=== PATIENT | female | born 1950 ===

== ENCOUNTER 2017-01-09 21:03 | Emergency (ER) | payer MEDICARE, OTHER ==
[2017-01-09 21:11] VITALS: O2SAT 97
--- NOTE | 2017-01-09 21:18 | C.PDOC ---
History Of Present Illness A 66 year old female, whose past medical history includes HTN and Hypercholesterolemia, presents to the emergency department with left sided shoulder and neck pain, which began earlier today. The patient denies any trauma to the area, chest pain, shortness of breath, diaphoresis, or any other complaints at this time. Chief Complaint (Nursing): Chest Pain History Per: Patient Onset/Duration Of Symptoms: Hrs (x earlier today) Current Symptoms Are (Timing): Still Present Past Medical History Vital Signs: Last Vital Signs Temp 98.7 F 01/09/17 21:10 Pulse 93 H 01/09/17 21:15 Resp 20 01/09/17 21:08 BP 170/79 H 01/09/17 21:15 Pulse Ox 97 01/09/17 21:23 - Medical History PMH: HTN, Hypercholesterolemia Family History: States: Unknown Family Hx - Social History Hx Alcohol Use: No Hx Substance Use: No - Immunization History Hx Tetanus Toxoid Vaccination: No Hx Influenza Vaccination: No Hx Pneumococcal Vaccination: No Review Of Systems Except As Marked, All Systems Reviewed And Found Negative. Constitutional: Negative for: Sweats Cardiovascular: Negative for: Chest Pain Respiratory: Negative for: Shortness of Breath Physical Exam - Physical Exam Appears: Well, No Acute Distress Skin: Normal Color, Warm, Dry Eye(s): bilateral: Normal Inspection, PERRL, EOMI Nose: Normal Throat: Normal Neck: Normal ROM, Paracervical Tenderness Cardiovascular: Rhythm Regular Respiratory: Normal Breath Sounds Gastrointestinal/Abdominal: Normal Exam Back: Normal Inspection Extremity: Normal ROM, Other (tenderness to the left shoulder ) ED Course And Treatment O2 Sat by Pulse Oximetry: 97 Medical Decision Making Medical Decision Making: Treatment Plan: -- EKG -- Toradol -- Radiology: Cervical spine, Left shoulder Disposition Counseled Patient/Family Regarding: Diagnosis - Disposition Referrals: [facility] [Outside] Disposition: HOME/ ROUTINE Disposition Time: 23:14 Condition: STABLE Prescriptions: Naproxen [Naprosyn Tab] 375 mg PO TIDPC #20 tab Instructions: Tendinitis (ED) Forms: [facility] (Czech), Gen Discharge Inst Swedish Print Language: YAKUT - POA Present On Arrival: None - Clinical Impression Clinical Impression: Left shoulder pain, Tendinitis - Scribe Statement The provider has reviewed the documentation as recorded by the Scribe Cheri Whittington All medical record entries made by the Scribe were at my direction and personally dictated by me. I have reviewed the chart and agree that the record accurately reflects my personal performance of the history, physical exam, medical decision making, and the department course for this patient. I have also personally directed, reviewed, and agree with the discharge instructions and disposition.
[2017-01-09 23:22] VITALS: BP 149/73; PULSE 84; RESP 18; TEMP 97.4
--- NOTE | 2017-01-10 11:32 | RAD ---
PROCEDURE: Radiographs of the Left Shoulder HISTORY: pain/ tenderness COMPARISON: Chest x-ray performed 12/10/15 FINDINGS: BONES: No acute displaced fracture. The distal clavicle and underlying ribs appear intact. JOINTS: No acute dislocation. SOFT TISSUES: Soft tissues appear unremarkable. No evidence of radiopaque foreign body. Dense atherosclerotic calcification of the aortic knob. IMPRESSION: No acute displaced fracture or dislocation evident. If symptoms persist or if there is continued clinical concern, x-ray follow-up in 7-10 days should be considered.
--- NOTE | 2017-01-10 11:40 | CARD ---
APPROVED REPORT EKG Measurement Heart [id number] <Conclusion> Normal sinus rhythm Cannot rule out Anterior infarct, age undetermined Abnormal ECG
--- NOTE | 2017-01-10 12:01 | RAD ---
PROCEDURE: Cervical Spine Radiographs. HISTORY: Pain. COMPARISON: Cervical spine radiographs 12/10/2015. FINDINGS: BONES: Alignment maintained. No fracture. Dens Intact. DISC SPACES: Multilevel cervical spondylosis again appreciate the mid to inferior cervical spine. No suspicious lytic or blastic bony changes throughout. SOFT TISSUES: Normal. No prevertebral soft tissue swelling. OTHER FINDINGS: None. IMPRESSION: Stable multilevel degenerative disc disease affecting the mid inferior cervical spine. No definite acute fracture or spondylolisthesis. MRI or CT are available follow-up if clinically warranted. S
== END 2017-01-09 23:22 | disposition home or self-care (01) ==
LOC: C.ER 21:03
DX: M75.92 Shoulder lesion, unspecified, left shoulder (principal)
CPT/HCPCS: 72040; 73030; 93005; 96372; 99284; J1885

== ENCOUNTER 2017-05-12 12:42 | Emergency (ER) | payer MEDICARE, OTHER ==
[2017-05-12 13:11] VITALS: O2SAT 98; BMI 31.1
[2017-05-12] MEDS ORDERED: Lactated Ringer's 1,000 ML IV STA (14:00)
[2017-05-12] MEDS ORDERED: Lactated Ringer's 1,000 ML ONE (14:19)
--- NOTE | 2017-05-12 14:40 | C.PDOC ---
History Of Present Illness Patient is a 67 y/o female who presents to the ED with a complaint of epigastric discomfort for the last 2 days. Patient denies pain being related to meals, admitting to eating and drinking well. Patient also notes left trapezius muscle tenderness without pain to the left shoulder. Denies taking any medication at home. Admits good compliance with DM medications, noting good blood sugar at home. No other physical complaints at this time. Time Seen by Provider: 05/12/17 13:19 Chief Complaint (Nursing): Abdominal Pain History Per: Patient History/Exam Limitations: no limitations Onset/Duration Of Symptoms: Days (2 days) Current Symptoms Are (Timing): Still Present Location Of Pain/Discomfort: Epigastric Recent travel outside of the [place]: No Past Medical History Reviewed: Historical Data, Nursing Documentation, Vital Signs Vital Signs: Last Vital Signs Temp 98.2 F 05/12/17 13:07 Pulse 73 05/12/17 13:07 Resp 17 05/12/17 13:07 BP 159/81 H 05/12/17 13:07 Pulse Ox 98 05/12/17 15:49 - Medical History PMH: Diabetes, HTN, Hypercholesterolemia Surgical History: No Surg Hx Family History: States: Unknown Family Hx - Social History Hx Alcohol Use: No Hx Substance Use: No - Immunization History Hx Tetanus Toxoid Vaccination: No Hx Influenza Vaccination: No Hx Pneumococcal Vaccination: No Review Of Systems Gastrointestinal: Positive for: Abdominal Pain (epigastric) Musculoskeletal: Positive for: Arm Pain (left trapezius muscle tenderness). Negative for: Shoulder Pain Physical Exam - Physical Exam Appears: No Acute Distress Skin: Normal Color, Warm, Dry Head: Atraumatic, Normacephalic Oral Mucosa: Moist Neck: Paracervical Tenderness (left trapezius muscle with spasm ) Chest: Symmetrical Cardiovascular: Rhythm Regular, No Murmur Respiratory: Normal Breath Sounds, No Rales, No Rhonchi, No Wheezing Gastrointestinal/Abdominal: Tenderness (mild to epigastric region), Other (obese ) Extremity: Other (normal left shoulder) Neurological/Psych: Oriented x3, Normal Speech, Normal Cognition ED Course And Treatment - Laboratory Results Result Diagrams: 05/12/17 15:19 05/12/17 15:19 Lab Interpretation: Normal (trop neg.) ECG: Interpreted By [place] ECG Rhythm: Sinus Rhythm ECG Interpretation: Normal Rate From EC O2 Sat by Pulse Oximetry: 98 Pulse Ox Interpretation: Normal - Radiology CXR: Interpreted by Me CXR Interpretation: Yes: No Acute Disease - Other Rad Obstructive series X-Ray: Interpreted by Me, Viewed By Me Interpretation: IMPRESSION: Nonobstructive bowel-gas pattern. Clear lungs. Reevaluation Time: 15:55 Reassessment Condition: Improved Medical Decision Making Medical Decision Making: EKG, UA, and blood work ordered. Toradol and IV fluids administered. 1600: normal w/u. normal obstructive series benign belly. L trapezius strain/spasm improved with Toradol- ice and NSAIDS educated. OK for d/c and opt f/u. Disposition Doctor Will See Patient In The: Office Counseled Patient/Family Regarding: Studies Performed, Diagnosis - Disposition Disposition: HOME/ ROUTINE Disposition Time: 15:56 Condition: GOOD Forms: [facility] (Belizean) - Clinical Impression Clinical Impression: Trapezius muscle strain, Abdominal pain - Scribe Statement The provider has reviewed the documentation as recorded by the Scribe Lisa Barnhart All medical record entries made by the Scribe were at my direction and personally dictated by me. I have reviewed the chart and agree that the record accurately reflects my personal performance of the history, physical exam, medical decision making, and the department course for this patient. I have also personally directed, reviewed, and agree with the discharge instructions and disposition.
--- NOTE | 2017-05-12 14:50 | RAD ---
PROCEDURE: Radiographs of the chest and abdomen (obstructive series) HISTORY: Abdominal pain COMPARISON: No prior. TECHNIQUE: AP radiograph of the chest, with upright and supine radiographs of the abdomen. FINDINGS: CHEST: Lungs: The lungs are clear. Cardiovascular: There is mild cardiomegaly. No pulmonary vascular congestion. Pleura: No pleural fluid. No pneumothorax. Other findings: None. ABDOMEN AND PELVIS: Bowel: The bowel gas pattern is nonobstructive. No evidence of mechanical obstruction. Free air: None. Bones: Unremarkable. Other findings: None. IMPRESSION: Nonobstructive bowel-gas pattern. Clear lungs.
[2017-05-12 15:29] LABS: BASO # 0.1 K/uL (0.0-0.2); BASO % 1.2 % (0.0-2.0); EOS # 0.2 K/uL (0.0-0.7); EOS % 2.6 % (0.0-4.0); HEMATOCRIT 30.5 % (34.0-47.0); LYMPH # 1.2 K/uL (1.0-4.3); LYMPH % 13.9 % (20.0-40.0); MEAN CELL VOLUME 78.6 fL (81.0-99.0); MEAN CORPUSCULAR HEMOGLOBIN 27.2 pg (27.0-31.0); MEAN CORPUSCULAR HGB CONC 34.6 g/dL (33.0-37.0); MEAN PLATELET VOLUME 9.4 fL (7.2-11.7); MONO # 0.5 K/uL (0.0-0.8); MONO % 5.4 % (0.0-10.0); RED CELL DISTRIBUTION WIDTH 14.5 % (11.5-14.5); WHITE BLOOD COUNT 8.7 K/uL (4.8-10.8)
[2017-05-12 15:38] LABS: ALB/GLOB RATIO 1.2 (1.0-2.1); ALKALINE PHOSPHATASE 68 U/L (38-126); ALT/SGPT 16 U/L (9-52); AST/SGOT 24 U/L (14-36); BILIRUBIN,TOTAL 0.4 mg/dL (0.2-1.3); BLOOD UREA NITROGEN 19 mg/dL (7-17); CALCIUM 8.8 mg/dl (8.6-10.4); CARBON DIOXIDE 26 mmol/L (22-30); CHLORIDE 98 mmol/L (98-107); GFR AFRICAN-AMERICAN > 60; GLUCOSE,RANDOM 157 mg/dL (65-105); POTASSIUM 3.9 mmol/L (3.6-5.2); SODIUM 134 mmol/L (132-148); TOTAL PROTEIN 7.2 g/dL (6.3-8.3)
[2017-05-12 16:10] VITALS: BP 178/75; PULSE 76; RESP 20; TEMP 98
== END 2017-05-12 16:13 | disposition home or self-care (01) ==
LOC: C.ER 12:42
DX: R10.9 Unspecified abdominal pain (principal); S46.812A Strain of other muscles, fascia and tendons at shoulder and upper arm level, left arm, initial encounter; X58.XXXA Exposure to other specified factors, initial encounter; E11.9 Type 2 diabetes mellitus without complications; E78.00 Pure hypercholesterolemia, unspecified; I10 Essential (primary) hypertension
CPT/HCPCS: 74022; 80053; 82948; 83690; 84484; 85025; 96360; 96361; 96374; 99284; J1885; J7120

== ENCOUNTER 2017-05-21 16:17 | Inpatient (IN) | payer MEDICARE, OTHER ==
[2017-05-21 16:17] VITALS: BMI 31.1
--- NOTE | 2017-05-21 17:05 | C.PDOC ---
History Of Present Illness <Marina Cordao - Last Filed: 05/21/17 18:41> <Edmund Valdez - Last Filed: 05/21/17 22:00> 67-year-old female, PMHx includes Diabetes, presents to the emergency department with complaints of recurring epigastric abdominal pain that started yesterday. Pain is non-radiating, and not associated with eating or any nausea/ vomiting, or diarrhea. States she had similar pain and was seen in ER for it 9 days ago, which resolved, but it has now returned. Patient denies fevers, chills , chest pain, shortness of breath or any other associated symptoms. No other complaints at this time. (Marina Corado) History Per: Patient History/Exam Limitations: no limitations <Marina Coraod - Last Filed: 05/21/17 18:41> <Edmund Valdez - Last Filed: 05/21/17 22:00> Time Seen by Provider: 05/21/17 17:01 Chief Complaint (Nursing): Abdominal Pain Past Medical History Reviewed: Historical Data, Nursing Documentation, Vital Signs - Medical History PMH: Diabetes, HTN, Hypercholesterolemia Family History: States: No Known Family Hx - Social History Hx Alcohol Use: No Hx Substance Use: No - Immunization History Hx Tetanus Toxoid Vaccination: No Hx Influenza Vaccination: No Hx Pneumococcal Vaccination: No <Marina Corado - Last Filed: 05/21/17 18:41> Vital Signs: Last Vital Signs Temp 98.7 F 05/21/17 19:25 Pulse 80 05/21/17 21:25 Resp 20 05/21/17 21:25 BP 165/90 H 05/21/17 21:25 Pulse Ox 100 05/21/17 21:25 Review Of Systems Except As Marked, All Systems Reviewed And Found Negative. Constitutional: Negative for: Fever, Chills Cardiovascular: Negative for: Chest Pain Respiratory: Negative for: Shortness of Breath Gastrointestinal: Positive for: Abdominal Pain. Negative for: Nausea, Vomiting , Diarrhea Musculoskeletal: Negative for: Back Pain Neurological: Negative for: Weakness, Numbness, Headache, Dizziness <Marina Corado - Last Filed: 05/21/17 18:41> Physical Exam - Physical Exam Appears: Non-toxic, No Acute Distress Skin: Warm, Dry, No Rash Head: Atraumatic, Normacephalic Eye(s): bilateral: Normal Inspection, PERRL Nose: Normal Oral Mucosa: Moist Lips: Normal Appearing Neck: Normal ROM Chest: Symmetrical Cardiovascular: Rhythm Regular, No Murmur Respiratory: Normal Breath Sounds, No Accessory Muscle Use Gastrointestinal/Abdominal: Soft, Tenderness (mild, epigastric), No Guarding, No Rebound Extremity: Normal ROM Neurological/Psych: Oriented x3, Normal Speech <Marina Corado - Last Filed: 05/21/17 18:41> ED Course And Treatment - Laboratory Results Result Diagrams: 05/21/17 17:47 05/21/17 17:47 O2 Sat by Pulse Oximetry: 95 (on RA) Pulse Ox Interpretation: Normal <Marina Corado - Last Filed: 05/21/17 18:41> - Laboratory Results Result Diagrams: 05/21/17 17:47 05/21/17 17:47 - CT Scan/US CT abd/pelvis Other Rad Studies (CT/US): Read By Radiologist, Radiology Report Reviewed CT/US Interpretation: FINDINGS: Lower thorax: Enlarged pericardiac lymph nodes noted. Granuloma in the right lower lobe. ABDOMEN: Liver: Undulating contour to the liver. Calcified granulomas. Gallbladder and bile ducts: Dilated gallbladder. No radiopaque gallstones visualized. Ultrasound can. provide more sensitive evaluation of the biliary system as warranted. Pancreas: No acute abnormality as visualized. Spleen: Calcified granulomas. No splenomegaly. Adrenals: No acute abnormality as visualized. Kidneys and ureters: Subcentimeter hypoattenuating lesion in the left kidney too small to. characterize. Symmetric emhancement. No hydronephrosis. Stomach and bowel: Small hiatal hernia. No obstruction. Retained fecal material in the colon. Appendix: What appears to represent fluid-filled appendix is dilated to approximately 14 mm. Surrounding fluid and inflammatory stranding noted. Evidence of connection to cecum with better. visualized on sagittal image. PELVIS: Bladder: Distended. Reproductive: Correlate for hysterectomy. ABDOMEN and PELVIS: Intraperitoneal space: No free air. No significant free fluid. Bones: Degenerative changes, most notable at L5-S1. Vasculature: Atherosclerosis. No abdominal aortic aneurysm. Lymph nodes: Enlarged pericardiac lymph nodes noted. An enlarged para-aortic node visualized. IMPRESSION: Appearance concerning for acute appendicitis. Correlate clinically. Please see details as above. Dilated gallbladder. No radiopaque gallstones visualized. Ultrasound can provide more sensitive. evaluation of the biliary system as warranted. Small hiatal hernia. Retained fecal material in the colon. Enlarged pericardiac lymph nodes noted. An enlarged para-aortic node visualized. Please see additional details/findings as above. Some of the above findings may warrant followup. evaluation <Edmund Valdez - Last Filed: 05/21/17 22:00> Progress - Data Reviewed Data Reviewed: Lab, Diagnostic imaging, EKG, Old records <Marina Corado - Last Filed: 05/21/17 18:41> Medical Decision Making <Marina Corado - Last Filed: 05/21/17 18:41> <Edmund Valdez - Last Filed: 05/21/17 22:00> Medical Decision Making: Impression 67y/o F comes in w/ epigastric abdominal pain x1 day. Prior Visits Notes and records from previous visits were reviewed. Patient evaluated in ER on 05/12 for similar complaint. Patient had normal EKG and urine. She was treated with Toradol and IVFs. Pts XR was benign. (Marina Corado) 21:10 - results from the CT scan via [facility]rad showed positive for appendicitis 21:20 - called the surgical supervisor contour grinder, will come see the patient 21:55 - spoke with surgical supervisor who agrees to admit the patient under Dr. Doyle, reevaluated the patient who denies any abdominal pain at this time and the RLQ is benign. A/P: low grade pancreatisis without findings on CT, lipase [address] but benign RLQ and no leukocytosis admit to Dr. Doyle's service for Obs. (Edmund Valdez) Disposition Counseled Patient/Family Regarding: Diagnosis - Disposition Disposition Time: 19:00 <Marina Corado - Last Filed: 05/21/17 18:41> Doctor Will See Patient In The: Hospital - Disposition Disposition Time: 21:59 <Edmund Valdez - Last Filed: 05/21/17 22:00> - Disposition Condition: GOOD Forms: [facility] (Omani) - Clinical Impression Clinical Impression: UTI (urinary tract infection), Abdominal pain, Elevated lipase, Appendicitis, Pancreatitis - Scribe Statement The provider has reviewed the documentation as recorded by the Scribe (Cecile Morales) <Marina Corado - Last Filed: 05/21/17 18:41> <Edmund Valdez - Last Filed: 05/21/17 22:00> - Scribe Statement All medical record entries made by the Scribe were at my direction and personally dictated by me. I have reviewed the chart and agree that the record accurately reflects my personal performance of the history, physical exam, medical decision making, and the department course for this patient. I have also personally directed, reviewed, and agree with the discharge instructions and disposition. (Marina Corado) Physician Patient Turnover Patient Signed Over To: Edmund Valdez Handoff Comments: DAVID CT, DISPO <Marina Corado - Last Filed: 05/21/17 18:41>
[2017-05-21] MEDS ORDERED: Iohexol 240 (50 ml) PO STA (17:30)
[2017-05-21] MEDS ORDERED: Sodium Chloride 0.9% 1,000 ML IV ONE (17:30)
[2017-05-21] MEDS ORDERED: Sodium Chloride 0.9% 1,000 ML ONE (17:42)
[2017-05-21 17:57] LABS: BASO # 0.1 K/uL (0.0-0.2); BASO % 1.2 % (0.0-2.0); EOS # 0.2 K/uL (0.0-0.7); EOS % 2.5 % (0.0-4.0); HEMOGLOBIN 11.4 g/dL (11.0-16.0); LYMPH # 1.1 K/uL (1.0-4.3); LYMPH % 11.5 % (20.0-40.0); MEAN CELL VOLUME 78.2 fL (81.0-99.0); MEAN CORPUSCULAR HEMOGLOBIN 26.9 pg (27.0-31.0); MEAN CORPUSCULAR HGB CONC 34.5 g/dL (33.0-37.0); MONO # 0.5 K/uL (0.0-0.8); MONO % 5.3 % (0.0-10.0); NEUT # 7.7 K/uL (1.8-7.0); NEUT % 79.5 % (50.0-75.0); RBC 4.24 Mil/uL (3.80-5.20); RED CELL DISTRIBUTION WIDTH 14.3 % (11.5-14.5); WHITE BLOOD COUNT 9.7 K/uL (4.8-10.8)
[2017-05-21] MEDS ORDERED: Iohexol 240 (50 ml) ONE (17:59)
[2017-05-21 18:00] LABS: PROTHROMBIN TIME 10.8 SECONDS (9.7-12.2)
--- NOTE | 2017-05-21 18:09 | RAD ---
PROCEDURE: CHEST RADIOGRAPH, 1 VIEW HISTORY: abd pain COMPARISON: Comparison is made with 12/10/2015 FINDINGS: LUNGS: No significant interval change in the lungs noted since the previous study. PLEURA: No pneumothorax or pleural fluid seen. CARDIOVASCULAR: Normal. OSSEOUS STRUCTURES: No significant abnormalities. VISUALIZED UPPER ABDOMEN: Normal. OTHER FINDINGS: None. IMPRESSION: No active disease.
[2017-05-21 18:13] LABS: SQUAMOUS EPITHIAL 10 /hpf (0-5); URINE BACTERIA MANY (<OCC); URINE BILIRUBIN NEGATIVE (NEGATIVE); URINE BLOOD NEGATIVE (NEGATIVE); URINE CLARITY Clear (Clear); URINE COLOR Yellow (YELLOW); URINE GLUCOSE (UA) 1+ mg/dL (Normal); URINE LEUKOCYTE ESTERASE 2+ Leu/uL (Negative); URINE NITRATE NEGATIVE (NEGATIVE); URINE PROTEIN 3+ mg/dL (NEGATIVE); URINE UROBILINOGEN NORMAL mg/dL (0.2-1.0)
[2017-05-21 18:15] LABS: ALBUMIN 4.2 g/dL (3.5-5.0); ALT/SGPT 17 U/L (9-52); AST/SGOT 23 U/L (14-36); BLOOD UREA NITROGEN 18 mg/dL (7-17); CALCIUM 9.4 mg/dl (8.6-10.4); GFR AFRICAN-AMERICAN > 60; GFR NON-AFRICAN AMERICAN 55; LIPASE 370 U/L (23-300)
[2017-05-21] MEDS ORDERED: Ciprofloxacin 400mg/200ml D5W 400 MG/200 ML BAG IV ONE (18:30)
[2017-05-21] MEDS ORDERED: Ciprofloxacin 400mg/200ml D5W 400 MG/200 ML BAG IVPB ONE (19:13)
[2017-05-21] MEDS ORDERED: Iodixanol 320 MG/ML 100 ML BOTTLE IV ONE (19:31)
[2017-05-21 19:41] VITALS: RESP 20
--- NOTE | 2017-05-21 21:29 | CT ---
EXAM: CT Abdomen and Pelvis With Intravenous Contrast CLINICAL HISTORY: 67 years old, female; Pain; Abdominal pain; Generalized; Additional info: Abd pain TECHNIQUE: Axial computed tomography images of the abdomen and pelvis with intravenous contrast. All CT scans at this facility use one or more dose reduction techniques, viz.: automated exposure control; ma/kV adjustment per patient size (including targeted exams where dose is matched to indication; i.e. head); or iterative reconstruction technique. Coronal and sagittal reformatted images were created and reviewed. CONTRAST: 10 mL of [id number] administered intravenously. COMPARISON: No relevant prior studies available. FINDINGS: Lower thorax: Enlarged pericardiac lymph nodes noted. Granuloma in the right lower lobe. ABDOMEN: Liver: Undulating contour to the liver. Calcified granulomas. Gallbladder and bile ducts: Dilated gallbladder. No radiopaque gallstones visualized. Ultrasound can provide more sensitive evaluation of the biliary system as warranted. Pancreas: No acute abnormality as visualized. Spleen: Calcified granulomas. No splenomegaly. Adrenals: No acute abnormality as visualized. Kidneys and ureters: Subcentimeter hypoattenuating lesion in the left kidney too small to characterize. Symmetric emhancement. No hydronephrosis. Stomach and bowel: Small hiatal hernia. No obstruction. Retained fecal material in the colon. Appendix: What appears to represent fluid-filled appendix is dilated to approximately 14 mm. Surrounding fluid and inflammatory stranding noted. Evidence of connection to cecum with better visualized on sagittal image. PELVIS: Bladder: Distended. Reproductive: Correlate for hysterectomy. ABDOMEN and PELVIS: Intraperitoneal space: No free air. No significant free fluid. Bones: Degenerative changes, most notable at L5-S1. Vasculature: Atherosclerosis. No abdominal aortic aneurysm. Lymph nodes: Enlarged pericardiac lymph nodes noted. An enlarged para-aortic node visualized. IMPRESSION: Appearance concerning for acute appendicitis. Correlate clinically. Please see details as above. Dilated gallbladder. No radiopaque gallstones visualized. Ultrasound can provide more sensitive evaluation of the biliary system as warranted. Small hiatal hernia. Retained fecal material in the colon. Enlarged pericardiac lymph nodes noted. An enlarged para-aortic node visualized. Please see additional details/findings as above. Some of the above findings may warrant followup evaluation.
--- NOTE | 2017-05-21 22:10 | CP.PCM.HP ---
History of Present Illness - History of Present Illness History of Present Illness: This is a 67F with a PMH of HTN and DM who presents with a 2 day history of epigastric pain. She reports that the pain is not associated with meals. At the time of my examination she reports that her pain has resolved. She presented 9 days prior to the ed for similar symptoms that had resolved. She denies any fevers, or chills at home. She denies any nausea vomiting or diarrhea. PMH: HTN, DM PSH: , Hysterectomy ALL: Penicillin (Rash) Social: Denies Tobacco, Ethanol, Drugs Present on Admission - Present on Admission Any Indicators Present on Admission: No History of DVT/PE: No History of Uncontrolled Diabetes: Yes Urinary Catheter: No Review of Systems - Constitutional Constitutional: absent: Anorexia, Chills, Fever - EENT Eyes: absent: Blind Spots, Blurred Vision Ears: absent: Ear Pain, Tinnitus Nose/Mouth/Throat: absent: Epistaxis - Cardiovascular Cardiovascular: absent: Chest Pain, Dyspnea - Respiratory Respiratory: absent: Cough, Dyspnea on Exertion - Gastrointestinal Gastrointestinal: Abdominal Pain. absent: Cramping, Diarrhea, Nausea, Vomiting - Genitourinary Genitourinary: absent: Difficulty Urinating, Dysuria - Musculoskeletal Musculoskeletal: absent: Arthralgias - Integumentary Integumentary: absent: Lesions Past Patient History - Infectious Disease Hx of Infectious Diseases: None - Past Social History Smoking Status: Never Smoked - CARDIAC Hx Hypercholesterolemia: Yes Hx Hypertension: Yes - ENDOCRINE/METABOLIC Hx Diabetes Mellitus Type 2: Yes - PSYCHIATRIC Hx Substance Use: No - SURGICAL HISTORY Hx Hysterectomy: Yes - ANESTHESIA Hx Anesthesia: Yes Hx Anesthesia Reactions: No Hx Malignant Hyperthermia: No Meds Allergies/Adverse Reactions: Allergies Allergy/AdvReac Type Severity Reaction Status Date / Time Penicillins Allergy RASH Verified 05/21/17 16:24 Physical Exam - Constitutional Appears: Non-toxic, No Acute Distress - Head Exam Head Exam: ATRAUMATIC, NORMOCEPHALIC - Eye Exam Eye Exam: EOMI, Normal appearance - ENT Exam ENT Exam: Mucous Membranes Moist - Respiratory Exam Respiratory Exam: NORMAL BREATHING PATTERN - Cardiovascular Exam Cardiovascular Exam: REGULAR RHYTHM, +S1, +S2 - GI/Abdominal Exam GI & Abdominal Exam: Soft. absent: Distended, Firm, Guarding, Hernia, Rebound, Rigid - Extremities Exam Extremities exam: Positive for: normal capillary refill - Neurological Exam Neurological exam: Alert, Oriented x3 - Psychiatric Exam Psychiatric exam: Normal Affect, Normal Mood - Skin Skin Exam: Dry, Intact Results - Vital Signs Recent Vital Signs: Last Vital Signs Temp 98.7 F 05/21/17 19:25 Pulse 80 05/21/17 21:25 Resp 20 05/21/17 21:25 BP 165/90 H 05/21/17 21:25 Pulse Ox 100 05/21/17 21:25 - Labs Result Diagrams: 05/21/17 17:47 05/21/17 17:47 Labs: Laboratory Results - last 24 hr 05/21/17 05/21/17 05/21/17 17:47 17:47 17:47 WBC 9.7 RBC 4.24 Hgb 11.4 Hct 33.2 L MCV 78.2 L MCH 26.9 L MCHC 34.5 RDW 14.3 Plt Count 288 MPV 9.0 Neut % (Auto) 79.5 H Lymph % (Auto) 11.5 L [place] % (Auto) 5.3 Eos % (Auto) 2.5 Baso % (Auto) 1.2 Neut # 7.7 H Lymph # 1.1 [place] # 0.5 Eos # 0.2 Baso # 0.1 PT 10.8 INR 1.0 APTT 32 Sodium 133 Potassium 3.7 Chloride 96 L Carbon Dioxide 25 Anion Gap 16 BUN 18 H Creatinine 1.0 Est GFR ( Amer) > 60 Est GFR (Non-Af Amer) 55 Random Glucose 264 H Calcium 9.4 Total Bilirubin 0.4 AST 23 ALT 17 Alkaline Phosphatase 76 Troponin I < 0.0120 Total Protein 8.2 Albumin 4.2 Globulin 4.0 H Albumin/Globulin Ratio 1.0 Lipase 370 H Urine Color Urine Clarity Urine pH Ur Specific [place] Urine Protein Urine Glucose (UA) Urine Ketones Urine Blood Urine Nitrate Urine Bilirubin Urine Urobilinogen Ur Leukocyte Esterase Urine WBC (Auto) Urine RBC (Auto) Ur Squamous Epith Cells Urine Bacteria 05/21/17 17:47 WBC RBC Hgb Hct MCV MCH MCHC RDW Plt Count MPV Neut % (Auto) Lymph % (Auto) [place] % (Auto) Eos % (Auto) Baso % (Auto) Neut # Lymph # [place] # Eos # Baso # PT INR APTT Sodium Potassium Chloride Carbon Dioxide Anion Gap BUN Creatinine Est GFR ( Amer) Est GFR (Non-Af Amer) Random Glucose Calcium Total Bilirubin AST ALT Alkaline Phosphatase Troponin I Total Protein Albumin Globulin Albumin/Globulin Ratio Lipase Urine Color Yellow Urine Clarity Clear Urine pH 7.0 Ur Specific [place] 1.009 Urine Protein 3+ H Urine Glucose (UA) 1+ Urine Ketones Negative Urine Blood Negative Urine Nitrate Negative Urine Bilirubin Negative Urine Urobilinogen Normal Ur Leukocyte Esterase 2+ H Urine WBC (Auto) 32 H Urine RBC (Auto) 26 H Ur Squamous Epith Cells 10 H Urine Bacteria Many H Assessment & Plan - Assessment and Plan (Free Text) Assessment: This is a 67F with Abdominal Pain NPO IVF Cipro/Flagyl Toradol AM Labs SCDs Re-evaluate in AM D/W Dr. Vivek Garcia PGY2
[2017-05-21] MEDS ORDERED: Sodium Chloride 0.9% 1,000 ML IV SCH (22:30)
[2017-05-22] MEDS: metroNIDAZOLE IV 500 mg/100 ml 500 MG/100 ML BAG IVPB SCH ×2 (05:00→13:48)
[2017-05-22] MEDS ORDERED: Influenza Vaccine 60 mcg/0.5 mL SYR (4YR UP) IM ONE ×2 (06:33→14:45)
--- NOTE | 2017-05-22 06:33 | CP.PCM.PN ---
Subjective - Date & Time of Evaluation Date of Evaluation: 05/22/17 Time of Evaluation: 06:30 - Subjective Subjective: General Surgery Progress Note for Dr. Doyle This Patient was seen and examined this AM at bedside no acute events overnight. The patient complains of mild epigastric pain and a headache. Denies fevers chills chest pain nausea vomiting and diarrhea. Objective - Vital Signs/Intake and Output Vital Signs (last 24 hours): Temp Pulse Resp BP Pulse Ox 98.7 F 85 20 142/89 100 05/21/17 19:25 05/21/17 22:20 05/21/17 22:20 05/21/17 22:20 05/21/17 22:20 - Medications Medications: Current Medications Acetaminophen (Tylenol 325mg Tab) 650 mg PO STAT [facility] Stop: 05/22/17 06:27 Acetaminophen (Tylenol 325mg Tab) 650 mg PO Q6 PRN PRN Reason: Headache Amlodipine Besylate (Norvasc) 10 mg PO DAILY [facility] Glipizide (Glucotrol) 10 mg PO DAILY [facility] Hydrochlorothiazide (Hydrodiuril) 25 mg PO DAILY [facility] Ciprofloxacin (Cipro 400mg/200ml Dsw) 400 mg in 200 mls @ 133 mls/hr IVPB Q12H [facility] Last Admin: 05/22/17 06:15 Dose: 133 mls/hr Metronidazole (Flagyl) 500 mg in 100 mls @ 100 mls/hr IVPB Q8H [facility] Last Admin: 05/22/17 05:00 Dose: 100 mls/hr Sodium Chloride (Sodium Chloride 0.9%) 1,000 mls @ 100 mls/hr IV .Q10H [facility] Last Admin: 05/21/17 23:00 Dose: 100 mls/hr Ketorolac Tromethamine (Toradol) 30 mg IM Q6 [facility] Stop: 05/23/17 06:01 Last Admin: 05/22/17 06:20 Dose: Not Given Losartan Potassium (Cozaar) 100 mg PO DAILY [facility] Metformin HCl (Glucophage) 500 mg PO DAILY [facility] Metoprolol Succinate (Toprol Xl) 100 mg PO DAILY [facility] Pantoprazole Sodium (Protonix Ec Tab) 20 mg PO DAILY [facility] Rosuvastatin Calcium (Crestor) 20 mg PO HS [facility] Sitagliptin Phosphate (Januvia) 25 mg PO DAILY [facility] - Labs Labs: 05/21/17 17:47 05/21/17 17:47 PT 10.8 SECONDS (9.7-12.2) 05/21/17 17:47 INR 1.0 05/21/17 17:47 APTT 32 SECONDS (21-34) 05/21/17 17:47 - Constitutional Appears: Non-toxic, No Acute Distress - Head Exam Head Exam: ATRAUMATIC, NORMOCEPHALIC - Eye Exam Eye Exam: EOMI, Normal appearance - ENT Exam ENT Exam: Mucous Membranes Moist - Respiratory Exam Respiratory Exam: NORMAL BREATHING PATTERN - Cardiovascular Exam Cardiovascular Exam: REGULAR RHYTHM, +S1, +S2 - GI/Abdominal Exam GI & Abdominal Exam: Soft. absent: Firm, Guarding, Rigid, Tenderness - Neurological Exam Neurological Exam: Alert, Normal Gait - Psychiatric Exam Psychiatric exam: Normal Affect, Normal Mood - Skin Skin Exam: Dry, Intact, Normal Color Assessment and Plan - Assessment and Plan (Free Text) Assessment: 67F with abdominal pain and lipase of 370 Regular Diet Abx Consult GI for pancreatitis No surgical intervention at this time D/W Dr. Vivek Garcia PGY2
[2017-05-22] MEDS ORDERED: Ciprofloxacin 400mg/200ml D5W 400 MG/200 ML BAG IVPB SCH (07:15)
[2017-05-22 08:06] VITALS: BP 156/72; PULSE 75; TEMP 98.4; O2SAT 97
[2017-05-22 08:29] LABS: BASO # 0.1 K/uL (0.0-0.2); BASO % 1.4 % (0.0-2.0); EOS # 0.3 K/uL (0.0-0.7); HEMOGLOBIN 10.3 g/dL (11.0-16.0); LYMPH # 1.2 K/uL (1.0-4.3); LYMPH % 17.4 % (20.0-40.0); MEAN CELL VOLUME 78.3 fL (81.0-99.0); MEAN CORPUSCULAR HGB CONC 34.5 g/dL (33.0-37.0); MONO # 0.4 K/uL (0.0-0.8); MONO % 6.3 % (0.0-10.0); NEUT % 70.9 % (50.0-75.0); RBC 3.8 Mil/uL (3.80-5.20); RED CELL DISTRIBUTION WIDTH 14.6 % (11.5-14.5)
[2017-05-22 08:50] LABS: ALB/GLOB RATIO 1.1 (1.0-2.1); ALBUMIN 3.7 g/dL (3.5-5.0); ALT/SGPT 22 U/L (9-52); AST/SGOT 21 U/L (14-36); BLOOD UREA NITROGEN 13 mg/dL (7-17); CALCIUM 8.9 mg/dl (8.6-10.4); GFR AFRICAN-AMERICAN > 60; GFR NON-AFRICAN AMERICAN > 60
[2017-05-22] MEDS ORDERED: Metoprolol Succinate 100 mg XL Tab PO SCH (10:00)
[2017-05-22] MEDS ORDERED: Pantoprazole 20 mg EC Tab PO SCH (10:00)
[2017-05-22] MEDS ORDERED: Potassium Chloride 20 mEq ER Tab PO ONE (10:00)
--- NOTE | 2017-05-22 12:05 | CP.PCM.CON ---
History of Present Illness - History of Present Illness History of Present Illness: This is a 67 year old woman with abdominal pain. Patient was seen in the ER for epigastric pain on 05/12/2017 and was treated and released. Patient was readmitted 05/21/2017 for recurrent pain in th [place] location, unrelated to meals. She denies having nausea, vomiting, diarrhea. CT scan showed a dilated, fluid-filled appendix measureing 14 mm with surrounding fluid and inflammatory stranding. In addition, an elevated lipase level of 370 (normal up to 300) was noted. Review of Systems - Constitutional Constitutional: absent: Anorexia, Chills, Fever - Cardiovascular Cardiovascular: absent: Chest Pain, Dyspnea - Respiratory Respiratory: absent: Cough - Gastrointestinal Gastrointestinal: Abdominal Pain. absent: Diarrhea, Nausea, Vomiting - Genitourinary Genitourinary: absent: Dysuria Past Patient History - Infectious Disease Hx of Infectious Diseases: None - Past Medical History & Family History Past Medical History?: Yes - Past Social History Smoking Status: Never Smoked - CARDIAC Hx Cardiac Disorders: Yes Hx Hypercholesterolemia: Yes Hx Hypertension: Yes - PULMONARY Hx Respiratory Disorders: No - NEUROLOGICAL Hx Neurological Disorder: No - HEENT Hx HEENT Problems: No - RENAL Hx Chronic Kidney Disease: No - ENDOCRINE/METABOLIC Hx Endocrine Disorders: Yes Hx Diabetes Mellitus Type 2: Yes - HEMATOLOGICAL/ONCOLOGICAL Hx Blood Disorders: No - INTEGUMENTARY Hx Dermatological Problems: No - MUSCULOSKELETAL/RHEUMATOLOGICAL Hx Musculoskeletal Disorders: No - GASTROINTESTINAL Hx Gastrointestinal Disorders: No - GENITOURINARY/GYNECOLOGICAL Hx Genitourinary Disorders: No - PSYCHIATRIC Hx Psychophysiologic Disorder: No Hx Substance Use: No - SURGICAL HISTORY Hx Hysterectomy: Yes - ANESTHESIA Hx Anesthesia: Yes Hx Anesthesia Reactions: No Hx Malignant Hyperthermia: No Meds Allergies/Adverse Reactions: Allergies Allergy/AdvReac Type Severity Reaction Status Date / Time Penicillins Allergy RASH Verified 05/21/17 16:24 - Medications Medications: Current Medications Acetaminophen (Tylenol 325mg Tab) 650 mg PO Q6 PRN PRN Reason: Headache Amlodipine Besylate (Norvasc) 10 mg PO DAILY [facility] Last Admin: 05/22/17 09:53 Dose: 10 mg Glipizide (Glucotrol) 10 mg PO DAILY [facility] Last Admin: 05/22/17 09:44 Dose: 10 mg Hydrochlorothiazide (Hydrodiuril) 25 mg PO DAILY [facility] Last Admin: 05/22/17 09:44 Dose: 25 mg Ciprofloxacin (Cipro 400mg/200ml Dsw) 400 mg in 200 mls @ 133 mls/hr IVPB Q12H [facility] Last Admin: 05/22/17 06:15 Dose: 133 mls/hr Metronidazole (Flagyl) 500 mg in 100 mls @ 100 mls/hr IVPB Q8H [facility] Last Admin: 05/22/17 05:00 Dose: 100 mls/hr Ketorolac Tromethamine (Toradol) 30 mg IM Q6 [facility] Stop: 05/23/17 06:01 Last Admin: 05/22/17 11:32 Dose: Not Given Losartan Potassium (Cozaar) 100 mg PO DAILY [facility] Last Admin: 05/22/17 09:44 Dose: 100 mg Metformin HCl (Glucophage) 500 mg PO DAILY [facility] Last Admin: 05/22/17 09:45 Dose: 500 mg Metoprolol Succinate (Toprol Xl) 100 mg PO DAILY [facility] Last Admin: 05/22/17 09:45 Dose: 100 mg Pantoprazole Sodium (Protonix Ec Tab) 20 mg PO DAILY [facility] Last Admin: 05/22/17 11:03 Dose: 20 mg Pneumococcal Polyvalent Vaccine (Pneumovax 23 Vaccine) 0.5 ml IM .ONCE ONE Stop: 05/23/17 10:01 Rosuvastatin Calcium (Crestor) 20 mg PO [facility] Sitagliptin Phosphate (Januvia) 25 mg PO DAILY [facility] Last Admin: 05/22/17 09:44 Dose: 25 mg Physical Exam - Constitutional Appears: No Acute Distress - Head Exam Head Exam: ATRAUMATIC, NORMOCEPHALIC - Eye Exam Eye Exam: EOMI, PERRL - Neck Exam Neck exam: Negative for: Lymphadenopathy, Thyromegaly - Respiratory Exam Respiratory Exam: NORMAL BREATHING PATTERN. absent: Rales, Rhonchi, Wheezes - Cardiovascular Exam Cardiovascular Exam: REGULAR RHYTHM, +S1, +S2. absent: Gallop, Rubs, Systolic Murmur - GI/Abdominal Exam GI & Abdominal Exam: Normal Bowel Sounds, Soft. absent: Mass, Organomegaly, Tenderness - Rectal Exam Rectal Exam: Deferred - Extremities Exam Extremities exam: Negative for: calf tenderness, pedal edema Results - Vital Signs Recent Vital Signs: Last Vital Signs Temp 98.4 F 05/22/17 08:05 Pulse 75 05/22/17 08:05 Resp 20 01/01/18 08:05 BP 156/72 H 05/22/17 08:05 Pulse Ox 97 05/22/17 08:05 - Labs Result Diagrams: 05/22/17 08:20 05/22/17 08:20 Labs: Laboratory Results - last 24 hr 05/21/17 05/21/17 05/21/17 17:47 17:47 17:47 WBC 9.7 RBC 4.24 Hgb 11.4 Hct 33.2 L MCV 78.2 L MCH 26.9 L MCHC 34.5 RDW 14.3 Plt Count 288 MPV 9.0 Neut % (Auto) 79.5 H Lymph % (Auto) 11.5 L [place] % (Auto) 5.3 Eos % (Auto) 2.5 Baso % (Auto) 1.2 Neut # 7.7 H Lymph # 1.1 [place] # 0.5 Eos # 0.2 Baso # 0.1 PT 10.8 INR 1.0 APTT 32 Sodium 133 Potassium 3.7 Chloride 96 L Carbon Dioxide 25 Anion Gap 16 BUN 18 H Creatinine 1.0 Est GFR ( Amer) > 60 Est GFR (Non-Af Amer) 55 POC Glucose (mg/dL) Random Glucose 264 H Calcium 9.4 Total Bilirubin 0.4 AST 23 ALT 17 Alkaline Phosphatase 76 Troponin I < 0.0120 Total Protein 8.2 Albumin 4.2 Globulin 4.0 H Albumin/Globulin Ratio 1.0 Lipase 370 H Urine Color Urine Clarity Urine pH Ur Specific [place] Urine Protein Urine Glucose (UA) Urine Ketones Urine Blood Urine Nitrate Urine Bilirubin Urine Urobilinogen Ur Leukocyte Esterase Urine WBC (Auto) Urine RBC (Auto) Ur Squamous Epith Cells Urine Bacteria 05/21/17 05/22/17 05/22/17 17:47 07:09 08:20 WBC 7.0 RBC 3.80 Hgb 10.3 L Hct 29.7 L MCV 78.3 L MCH 27.0 MCHC 34.5 RDW 14.6 H Plt Count 261 MPV 9.0 Neut % (Auto) 70.9 Lymph % (Auto) 17.4 L [place] % (Auto) 6.3 Eos % (Auto) 4.0 Baso % (Auto) 1.4 Neut # 5.0 Lymph # 1.2 [place] # 0.4 Eos # 0.3 Baso # 0.1 PT INR APTT Sodium Potassium Chloride Carbon Dioxide Anion Gap BUN Creatinine Est GFR ( Amer) Est GFR (Non-Af Amer) POC Glucose (mg/dL) 154 H Random Glucose Calcium Total Bilirubin AST ALT Alkaline Phosphatase Troponin I Total Protein Albumin Globulin Albumin/Globulin Ratio Lipase Urine Color Yellow Urine Clarity Clear Urine pH 7.0 Ur Specific [place] 1.009 Urine Protein 3+ H Urine Glucose (UA) 1+ Urine Ketones Negative Urine Blood Negative Urine Nitrate Negative Urine Bilirubin Negative Urine Urobilinogen Normal Ur Leukocyte Esterase 2+ H Urine WBC (Auto) 32 H Urine RBC (Auto) 26 H Ur Squamous Epith Cells 10 H Urine Bacteria Many H 05/22/17 05/22/17 08:20 11:20 WBC RBC Hgb Hct MCV MCH MCHC RDW Plt Count MPV Neut % (Auto) Lymph % (Auto) [place] % (Auto) Eos % (Auto) Baso % (Auto) Neut # Lymph # [place] # Eos # Baso # PT INR APTT Sodium 134 Potassium 3.4 L Chloride 100 Carbon Dioxide 27 Anion Gap 11 BUN 13 Creatinine 0.9 Est GFR ( Amer) > 60 Est GFR (Non-Af Amer) > 60 POC Glucose (mg/dL) 216 H Random Glucose 182 H Calcium 8.9 Total Bilirubin 0.3 AST 21 ALT 22 Alkaline Phosphatase 61 Troponin I Total Protein 7.2 Albumin 3.7 Globulin 3.5 Albumin/Globulin Ratio 1.1 Lipase Urine Color Urine Clarity Urine pH Ur Specific [place] Urine Protein Urine Glucose (UA) Urine Ketones Urine Blood Urine Nitrate Urine Bilirubin Urine Urobilinogen Ur Leukocyte Esterase Urine WBC (Auto) Urine RBC (Auto) Ur Squamous Epith Cells Urine Bacteria Assessment & Plan (1) Appendicitis Assessment and Plan: Patient had CT showing an abnormal appendix, dilated, surrounded by inflammatory changes. These findings were not reported on a previous scan 2015. This is consistent with appendicitis or an appendiceal neoplasm. Consider repeat CT scan, surgery follow up. Status: Acute (2) Elevated lipase Assessment and Plan: Elevation of the lipase to three times the upper limit of normal (900 in this lab) is consistent with pancreatitis. Elevation of the lipase to 370 is non- specific. The CT scan showed no pancreatic abnormality, so it is unlikely that the patient has pancreatitis. Lipase should be repeated. Consdier MRI. Status: Acute
[2017-05-22] MEDS ORDERED: Enoxaparin 40 mg Syringe SC SCH (14:00)
[2017-05-22 14:29] LABS: AMYLASE 94 U/L (30-110); LIPASE 265 U/L (23-300)
[2017-05-22] MEDS ORDERED: Pneumococcal 23-Valent Vaccine IM ONE (14:45)
--- NOTE | 2017-05-23 13:17 | CARD ---
APPROVED REPORT EKG Measurement Heart [id number] <Conclusion> Normal sinus rhythm Normal ECG
== END 2017-05-22 17:45 | disposition home or self-care (01) | DRG 394 ==
LOC: C.ER 16:17 → C.9E 21:54 → C.3T 22:13
PROVIDERS: ADMIT Specialist; ATTEND Specialist
DX: K35.80 Unspecified acute appendicitis (principal); N39.0 Urinary tract infection, site not specified; E11.9 Type 2 diabetes mellitus without complications; R74.8 Abnormal levels of other serum enzymes; E78.00 Pure hypercholesterolemia, unspecified; I10 Essential (primary) hypertension

== ENCOUNTER 2017-05-26 15:52 | Emergency (ER) | payer MEDICARE, OTHER ==
[2017-05-26 15:52] VITALS: BMI 31.1
[2017-05-26 17:25] LABS: SQUAMOUS EPITHIAL 3 /hpf (0-5); URINE BACTERIA RARE (<OCC); URINE BILIRUBIN NEGATIVE (NEGATIVE); URINE BLOOD NEGATIVE (NEGATIVE); URINE CLARITY Clear (Clear); URINE COLOR Yellow (YELLOW); URINE GLUCOSE (UA) 1+ mg/dL (Normal); URINE LEUKOCYTE ESTERASE NEG Leu/uL (Negative); URINE NITRATE NEGATIVE (NEGATIVE); URINE PROTEIN 3+ mg/dL (NEGATIVE); URINE UROBILINOGEN NORMAL mg/dL (0.2-1.0)
[2017-05-26] MEDS ORDERED: Iohexol 240 (50 ml) PO STA (17:40)
--- NOTE | 2017-05-26 17:55 | C.PDOC ---
History Of Present Illness 67 yr old female presents to the ER with complaints of abdominal pain. Patient was seen on 05/21, had a equivocal CT for appendicitis and was admitted for 24hrs, discharged home with antibiotics and no surgery. Patient was seen by Dr. Doyle. Patient returns today states the pain has progressed since morning and is associated with loose stool. Patient reports she has been compliant with the antibiotics. Denies fever, chills, chest pain, SOB, nausea, vomiting, dysuria, weakness or numbness. Time Seen by Provider: 05/26/17 17:25 Chief Complaint (Nursing): Abdominal Pain History Per: Patient History/Exam Limitations: no limitations Onset/Duration Of Symptoms: Days Past Medical History Reviewed: Historical Data, Nursing Documentation, Vital Signs Vital Signs: Last Vital Signs Temp 97.9 F 05/26/17 15:54 Pulse 80 05/26/17 15:54 Resp 20 05/26/17 15:54 BP 185/93 H 05/26/17 15:54 Pulse Ox 98 05/26/17 18:52 - Medical History PMH: Diabetes, HTN, Hypercholesterolemia Family History: States: No Known Family Hx - Social History Hx Alcohol Use: No Hx Substance Use: No - Immunization History Hx Tetanus Toxoid Vaccination: No Hx Influenza Vaccination: No Hx Pneumococcal Vaccination: No Review Of Systems Except As Marked, All Systems Reviewed And Found Negative. Constitutional: Negative for: Fever, Chills Cardiovascular: Negative for: Chest Pain Respiratory: Negative for: Shortness of Breath Gastrointestinal: Positive for: Abdominal Pain. Negative for: Nausea, Vomiting Genitourinary: Negative for: Dysuria Neurological: Negative for: Weakness, Numbness Physical Exam - Physical Exam Appears: Non-toxic, No Acute Distress Skin: Warm, Dry, No Rash Head: Atraumatic, Normacephalic Oral Mucosa: Moist Chest: Symmetrical, No Tenderness Cardiovascular: Rhythm Regular, No Murmur Respiratory: Normal Breath Sounds, No Rales, No Rhonchi, No Stridor, No Wheezing Gastrointestinal/Abdominal: Soft, Tenderness (epigastric and hypogastrium), No Guarding, No Rebound Extremity: Normal ROM, No Swelling Neurological/Psych: Oriented x3, Normal Speech, Normal Motor, Normal Sensation ED Course And Treatment - Laboratory Results Result Diagrams: 05/26/17 18:04 05/26/17 18:04 O2 Sat by Pulse Oximetry: 98 (RA) Pulse Ox Interpretation: Normal - CT Scan/US CT - Abd & Pelvis w/ PO & IV Contrast Other Rad Studies (CT/US): Read By Radiologist, Radiology Report Reviewed Medical Decision Making Medical Decision Making: IMPRESSION: Abdominal pain PLAN: * CT - Abd & Pelvis w/ PO & IV Contrast * EKG * CBC * CMP * Urinalysis * Morphine IVP * Protonix IVP * Zofran IVP Disposition - Disposition Disposition Time: 19:00 (Transfered to Dr. Brush from al.) Condition: STABLE Forms: [employer] (Thai) - Clinical Impression Clinical Impression: Abdominal pain - Scribe Statement The provider has reviewed the documentation as recorded by the Scribe Tiffanie Espana Provider Attestation: All medical record entries made by the Scribe were at my direction and personally dictated by me. I have reviewed the chart and agree that the record accurately reflects my personal performance of the history, physical exam, medical decision making, and the department course for this patient. I have also personally directed, reviewed, and agree with the discharge instructions and disposition. Physician Patient Turnover - . Patient Signed Over To: Larissa Brush Handoff Comments: pending ct scan of abd. and pelvis, reevaluation and disposition.
[2017-05-26] MEDS ORDERED: Morphine 4 MG/ML VIAL ONE (18:05)
[2017-05-26] MEDS ORDERED: Iohexol 240 (50 ml) ONE (18:06)
[2017-05-26 18:10] LABS: BASO # 0.1 K/uL (0.0-0.2); BASO % 1.2 % (0.0-2.0); EOS # 0.3 K/uL (0.0-0.7); EOS % 3.4 % (0.0-4.0); LYMPH % 11.3 % (20.0-40.0); MEAN CORPUSCULAR HEMOGLOBIN 26.7 pg (27.0-31.0); MEAN CORPUSCULAR HGB CONC 34.3 g/dL (33.0-37.0); MEAN PLATELET VOLUME 9.4 fL (7.2-11.7); MONO # 0.5 K/uL (0.0-0.8); MONO % 6.3 % (0.0-10.0); NEUT # 6.8 K/uL (1.8-7.0); NEUT % 77.8 % (50.0-75.0); RBC 4.1 Mil/uL (3.80-5.20); RED CELL DISTRIBUTION WIDTH 14.9 % (11.5-14.5); WHITE BLOOD COUNT 8.7 K/uL (4.8-10.8)
[2017-05-26 18:31] LABS: ALB/GLOB RATIO 1.1 (1.0-2.1); ALBUMIN 4.1 g/dL (3.5-5.0)
[2017-05-26] MEDS ORDERED: Iodixanol 320 MG/ML 100 ML BOTTLE IV ONE (19:17)
--- NOTE | 2017-05-26 21:36 | CT ---
EXAM: CT Abdomen and Pelvis With Intravenous Contrast EXAM DATE/TIME: 05/26/2017 5:40 PM CLINICAL HISTORY: 67 years old, female; Pain; Abdominal pain; Generalized; Additional info: Abd pain TECHNIQUE: Axial computed tomography images of the abdomen and pelvis with intravenous contrast. All CT scans at this facility use one or more dose reduction techniques, viz.: automated exposure control; ma/kV adjustment per patient size (including targeted exams where dose is matched to indication; i.e. head); or iterative reconstruction technique. Coronal and sagittal reformatted images were created and reviewed. CONTRAST: 100 mL of visipaque 320 administered intravenously. COMPARISON: Prior CT abdomen and pelvis of 2017-05-21 20:51 FINDINGS: LOWER THORAX: Gastroesophageal reflux. Stable appearance of a 3 mm noncalcified nodule in the left lung base. Heart appears mildly enlarged. Coronary artery calcification. ABDOMEN: LIVER: Liver again appears cirrhotic. GALLBLADDER AND BILE DUCTS: Mild gallbladder dilatation. Suspect a small amount of pericholecystic fluid versus gallbladder wall thickening, seen as a rim of low density adjacent to the enhancing gallbladder mucosa, image 52/series 601. No radioopaque gallstones are seen. No evidence of significant pericholecystic inflammatory changes. No evidence of significant biliary ductal dilatation. PANCREAS: Pancreatic head appears mildly enlarged relative to the remainder of the pancreas, however, there is no evidence of significant peripancreatic stranding/inflammation. SPLEEN: No acute abnormality of the spleen identified. ADRENALS: No acute abnormality of the adrenal glands identified. KIDNEYS AND URETERS: Incidental fluid density 4 mm left renal lesion, measuring less than 10 mm. Consistent with the [employer]?s Incidental Findings Committee Report (J Am Brianna Radiol 2010): Unless the patient?s specific circumstances suggest otherwise, any cystic kidney lesion less than 1.0 cm not otherwise characterized in this report as possessing suspicious or indeterminate imaging features is/are highly likely to be benign and do not require follow-up imaging or biopsy. No acute abnormality of the kidneys identified. STOMACH AND BOWEL: See below. Otherwise, no significant abnormality of the bowel is identified. No evidence of bowel obstruction. No evidence of diverticulitis. APPENDIX: Normal appendix is not seen, and there are postsurgical changes near the cecum, which may be prior appendectomy. Recommend clinical correlation. PELVIS: BLADDER: Bladder is mildly dilated. REPRODUCTIVE: Uterus is surgically absent. Bilateral ovaries are seen, and are within normal limits in appearance. ABDOMEN and PELVIS: INTRAPERITONEAL SPACE: No evidence of free intraperitoneal air or fluid. RETROPERITONEAL SPACE: Again seen is fluid in the right retroperitoneal space, in the abdomen and pelvis, small in amount, not significantly changed since the prior study. This abuts the second duodenal segment, which appears thick walled. Best seen on image 104, there is a small 1.3 cm round, hyperdense, well-defined mass in the right retroperitoneum, which has fluid adjacent to it. This is of uncertain etiology. It does not connect to any definite solid or hollow organ. It could represent a small calcified lymph node. BONES/JOINTS: Bony structures appear demineralized. SOFT TISSUES: No acute abnormality of the visualized soft tissues is seen. VASCULATURE: Atherosclerotic calcification. No evidence of abdominal aortic aneurysm. LYMPH NODES: See above. Multiple small lymph nodes seen in the retroperitoneum, none appearing pathologically enlarged. This is a nonspecific finding. No evidence of diffuse pathologic lymphadenopathy. IMPRESSION: - No significant change compared to a 05/21/2017 CT. - Small amount of fluid in the right retroperitoneum. This is of uncertain etiology, but could potentially be due to duodenitis or mild acute pancreatitis, involving the pancreatic head. Recommend clinical correlation. - Small amount of pericholecystic fluid versus gallbladder wall thickening. This could be secondary to underlying chronic liver disease, as the liver is cirrhotic in appearance, but consider right upper quadrant ultrasound for further evaluation. - Otherwise, no evidence of significant acute process. - Patient appears to be post appendectomy, but recommend clinical correlation. - See above for remaining findings.
[2017-05-27 02:11] VITALS: O2SAT 97
--- NOTE | 2017-05-27 02:27 | US ---
EXAM: US Abdomen Complete CLINICAL HISTORY: 67 years old, female; Pain; Abdominal pain; Epigastric; Additional info: Epigastric pain. R/O gallstone pancreatitis TECHNIQUE: Real-time ultrasound of the abdomen (complete) with image documentation. COMPARISON: Recent abdominal CT. FINDINGS: Gallbladder: Within normal limits in appearance, without evidence of gallstones, significant gallbladder wall thickening, or pericholecystic fluid. Reportedly negative sonographic Parra's sign. Common bile duct: Does not appear abnormally dilated, measuring less than 6 mm in diameter. Liver: Has a nodular contour, compatible with cirrhotic change. Otherwise within normal limits in appearance. Measures 13 cm in length. Normal flow seen in the main portal vein on color and Doppler imaging. Pancreas: Incompletely seen due to gas. Imaged portions appear unremarkable. Right kidney: Within normal limits in appearance. Measures 11 cm in length. No evidence of hydronephrosis. Left kidney: Contains a 5.5 mm anechoic lesion, most compatible with a cyst. Otherwise within normal limits in appearance. Measures 10.5 cm in length. No evidence of hydronephrosis. Spleen: Within normal limits in appearance. Measures 9.8 cm in length. Aorta: Imaged portions appear unremarkable. No aneurysm visualized. IVC: Imaged portions appear unremarkable. IMPRESSION: No evidence of cholecystitis or other significant acute abnormality. Cirrhotic liver. Tiny left renal cyst. See above for remaining findings.
[2017-05-27 06:33] VITALS: BP 140/78; PULSE 84; RESP 16; TEMP 97.5
== END 2017-05-27 09:25 | disposition home or self-care (01) ==
LOC: C.ER 15:52
DX: R10.9 Unspecified abdominal pain (principal); I10 Essential (primary) hypertension; E11.9 Type 2 diabetes mellitus without complications
CPT/HCPCS: 74177; 76700; 80053; 81001; 83690; 85025; 96374; 96375; 99285; C9113; J2270; J2405; Q9966; Q9967

== ENCOUNTER 2017-06-20 06:06 | Day surgery (SDC) | payer MEDICARE, OTHER ==
[2017-06-20 06:54] VITALS: BMI 29.2
[2017-06-20] MEDS ORDERED: Propofol 10 mg/ml Inj (20 ML) ONE (07:38)
--- NOTE | 2017-06-20 07:40 | CP.SDSHP ---
Same Day Surgery H & P - History Proposed Procedure: EGD Pre-Op Diagnosis: SEE NOTES - Previous Medical/Surgical History Cardiac: Hypertension Endocrine/Metabolic: Diabetes, Other Misc: Other Pain: 4.Moderate Pain - Allergies Allergies: Allergies Penicillins Allergy (Verified 05/21/17 16:24) RASH - Physical Exam General Appearance: N Vital Signs: Vital Signs 06/20/17 06:43 Temperature 97.5 F L Pulse Rate 80 Respiratory 20 Rate Blood Pressure 145/73 O2 Sat by Pulse 98 Oximetry Mental Status: Alert & Oriented x3 Neuro: WNL Heart: Other Lungs: WNL GI: Other - {Optional Preform as Required} Breast: WNL Rectal: Other Integument: WNL : WNL Ortho: WNL ENT: WNL - Impression Pt. Evaluated Today:Candidate for Anesthesia & Procedure: Yes - Date & Time Time: 07:40 Short Stay Discharge - Short Stay Discharge Admitting Diagnosis/Reason for Visit: DYSPEPSIA Disposition: HOME/ ROUTINE
[2017-06-20] MEDS ORDERED: Lidocaine Hydrochloride 5 ML INJ ONE (07:41)
[2017-06-20] MEDS ORDERED: Lactated Ringer's 500 ML IV SCH (07:45)
[2017-06-20] MEDS ORDERED: Belladonna-Phenobarbital PO ONE (08:15)
[2017-06-20 09:46] VITALS: TEMP 98
[2017-06-20 09:57] VITALS: BP 160/80; PULSE 88; RESP 20; O2SAT 99
== END 2017-06-20 09:15 | disposition home or self-care (01) ==
LOC: C.ENDO 06:06
PROVIDERS: ATTEND Specialist
DX: K30 Functional dyspepsia (principal); B96.81 Helicobacter pylori [H. pylori] as the cause of diseases classified elsewhere; K29.80 Duodenitis without bleeding; K29.70 Gastritis, unspecified, without bleeding; K44.9 Diaphragmatic hernia without obstruction or gangrene; I10 Essential (primary) hypertension; E11.9 Type 2 diabetes mellitus without complications; Z88.0 Allergy status to penicillin
CPT/HCPCS: 43239; 82948; 88305; 88342; J2704; J7120

== ENCOUNTER 2017-07-11 06:16 | Day surgery (SDC) | payer MEDICARE, OTHER ==
--- NOTE | 2017-07-11 08:22 | CP.SDSHP ---
Same Day Surgery H & P - History Proposed Procedure: COLONSCOPY Pre-Op Diagnosis: SEE NOTES - Previous Medical/Surgical History Cardiac: Hypertension Endocrine/Metabolic: Diabetes, Other Misc: Other Pain: 2.Mild Pain - Allergies Allergies: Allergies Penicillins Allergy (Verified 07/11/17 06:55) RASH - Physical Exam General Appearance: N Vital Signs: Vital Signs 07/11/17 06:45 Temperature 97 F L Pulse Rate 100 H Respiratory 20 Rate Blood Pressure 142/77 O2 Sat by Pulse 99 Oximetry Mental Status: Alert & Oriented x3 Neuro: WNL Heart: Other Lungs: WNL GI: WNL - {Optional Preform as Required} Breast: WNL Abdomen: Other Rectal: Other Integument: WNL : WNL Ortho: Other ENT: WNL - Impression Pt. Evaluated Today:Candidate for Anesthesia & Procedure: Yes - Date & Time Time: 08:22 Short Stay Discharge - Short Stay Discharge Admitting Diagnosis/Reason for Visit: COLON SCREENING Disposition: HOME/ ROUTINE
[2017-07-11] MEDS ORDERED: Propofol 10 mg/ml Inj (20 ML) ONE (08:24)
[2017-07-11] MEDS ORDERED: Lactated Ringer's 500 ML IV SCH (08:30)
[2017-07-11] MEDS ORDERED: Belladonna-Phenobarbital PO ONE (09:15)
[2017-07-11 11:06] VITALS: TEMP 98.7; O2SAT 100
[2017-07-11 11:22] VITALS: BP 156/80; PULSE 88; RESP 21
== END 2017-07-11 09:45 | disposition home or self-care (01) ==
LOC: C.ENDO 06:16
PROVIDERS: ATTEND Specialist
DX: Z12.11 Encounter for screening for malignant neoplasm of colon (principal); D12.3 Benign neoplasm of transverse colon; K64.8 Other hemorrhoids; K58.9 Irritable bowel syndrome, unspecified; I10 Essential (primary) hypertension; E11.9 Type 2 diabetes mellitus without complications; E78.5 Hyperlipidemia, unspecified
CPT/HCPCS: 45380; 82948; 88305; J2704; J7120

== ENCOUNTER 2017-07-13 13:11 | Emergency (ER) | payer MEDICARE, OTHER ==
[2017-07-13 13:11] VITALS: BMI 29.2
[2017-07-13 13:33] VITALS: O2SAT 97
[2017-07-13] MEDS ORDERED: Sodium Chloride 0.9% 500 ML IV ONE (14:21)
[2017-07-13 14:44] LABS: BASO # 0.1 K/uL (0.0-0.2); BASO % 0.9 % (0.0-2.0); EOS # 0.2 K/uL (0.0-0.7); EOS % 1.6 % (0.0-4.0); HEMOGLOBIN 11.5 g/dL (11.0-16.0); LYMPH # 1.5 K/uL (1.0-4.3); LYMPH % 15.8 % (20.0-40.0); MEAN CELL VOLUME 77.3 fL (81.0-99.0); MEAN CORPUSCULAR HEMOGLOBIN 26.1 pg (27.0-31.0); MEAN CORPUSCULAR HGB CONC 33.8 g/dL (33.0-37.0); MEAN PLATELET VOLUME 9.1 fL (7.2-11.7); MONO # 0.5 K/uL (0.0-0.8); MONO % 5.4 % (0.0-10.0); NEUT # 7.2 K/uL (1.8-7.0); NEUT % 76.3 % (50.0-75.0); RBC 4.4 Mil/uL (3.80-5.20); RED CELL DISTRIBUTION WIDTH 14.7 % (11.5-14.5); WHITE BLOOD COUNT 9.5 K/uL (4.8-10.8)
[2017-07-13] MEDS ORDERED: Sodium Chloride 0.9% 1,000 ML ONE (14:54)
[2017-07-13 14:56] LABS: ALB/GLOB RATIO 0.9 (1.0-2.1); ALBUMIN 3.9 g/dL (3.5-5.0); CALCIUM 9.6 mg/dl (8.6-10.4)
--- NOTE | 2017-07-13 15:44 | C.PDOC ---
Time Seen by Provider: 07/13/17 14:09 Chief Complaint (Nursing): Abdominal Pain History Per: Patient, Family Onset/Duration Of Symptoms: Days, Waxing/Waning Current Symptoms Are (Timing): Still Present Severity: Moderate Location Of Pain/Discomfort: Epigastric Quality Of Discomfort: Unable To Describe, "Pain" Exacerbating Factors: Food Additional History Per: Prior Records Past Medical History Reviewed: Historical Data, Nursing Documentation, Vital Signs Vital Signs: Last Vital Signs Temp 98.6 F 07/13/17 13:27 Pulse 96 H 07/13/17 13:27 Resp 18 07/13/17 13:27 BP 128/80 07/13/17 13:27 Pulse Ox 97 07/13/17 13:27 - Medical History PMH: Arthritis, Diabetes, Gastritis, Hiatal Hernia, HTN, Hypercholesterolemia Surgical History: Coronary Stent (1998), Endoscopy Family History: States: Unknown Family Hx - Social History Hx Alcohol Use: No Hx Substance Use: No - Immunization History Hx Tetanus Toxoid Vaccination: No Hx Influenza Vaccination: No Hx Pneumococcal Vaccination: No Review Of Systems Except As Marked, All Systems Reviewed And Found Negative. Constitutional: Negative for: Fever, Weakness Cardiovascular: Negative for: Chest Pain Respiratory: Negative for: Shortness of Breath Gastrointestinal: Positive for: Abdominal Pain. Negative for: Vomiting, Diarrhea, Melena, Hematochezia, Hematemesis Genitourinary: Negative for: Dysuria Musculoskeletal: Negative for: Neck Pain Skin: Negative for: Rash Neurological: Negative for: Weakness, Numbness Physical Exam - Physical Exam Appears: Non-toxic, No Acute Distress Skin: Normal Color, Warm, Dry, No Rash Head: Atraumatic, Normacephalic Eye(s): bilateral: Normal Inspection, PERRL, EOMI Neck: Normal ROM, Supple Cardiovascular: Rhythm Regular Respiratory: Normal Breath Sounds, No Accessory Muscle Use Gastrointestinal/Abdominal: Soft, Tenderness (mild nonspecific), No Guarding, No Rebound Back: No CVA Tenderness Extremity: Normal ROM Neurological/Psych: Oriented x3, Normal Motor, Normal Sensation ED Course And Treatment - Laboratory Results Result Diagrams: 07/13/17 14:41 07/13/17 14:41 Lab Interpretation: No Changes Compared To Prior Results Interpretation Of Abnormal: Lipase is mildly elevated but unchanged from prior. O2 Sat by Pulse Oximetry: 97 Pulse Ox Interpretation: Normal Progress - Interventions Interventions:: Observation, Intravenous fluid - Medications Administered Intravenous: Antiemetic, H-2 maryann - Data Reviewed Data Reviewed: Lab, Old records - Patient Status Patient status: Mostly improved - Continuity of Care Discussed patient case with:: Patient, Family-HIPPA compliant, ED Nurse - Patient Plan Patient Plan: Discharge, F/U with PCP Disposition Discussed With : Lazaro Ramirez (GI) Comment: He had recently performed a colonoscopy and Upper endoscopy on pt that showed hiatal hernia and duodenitis. I discussed with him the pt's presentation and lab findings. He wants pt to be started on Protonix and Carafate and with will see pt in his office within 1 week. Doctor Will See Patient In The: Office Counseled Patient/Family Regarding: Studies Performed, Diagnosis, Need For Followup, Rx Given - Disposition Referrals: Lazaro Ramirez [Staff Provider] - Disposition: HOME/ ROUTINE Disposition Time: 15:44 Condition: IMPROVED Additional Instructions: Follow up with your Bail Bonding Agent within 1 week for further evaluation and treatment. Return to the ER if you develop fever, vomiting, bloody or black stools, worsening of symptoms or if you have any other concerns. Prescriptions: Pantoprazole Sodium [Protonix] 40 mg PO DAILY #14 ect Sucralfate [Carafate] 1 gm PO TID #90 tab Instructions: Gastritis (DC) Forms: [employer] (Pashto) Print Language: JAPANESE - Clinical Impression Clinical Impression: Abdominal pain
[2017-07-13 16:01] VITALS: BP 146/78; PULSE 90; RESP 20; TEMP 97.8
== END 2017-07-13 16:01 | disposition home or self-care (01) ==
LOC: C.ER 13:11
DX: R10.9 Unspecified abdominal pain (principal); E11.9 Type 2 diabetes mellitus without complications; E78.00 Pure hypercholesterolemia, unspecified; I10 Essential (primary) hypertension
CPT/HCPCS: 80053; 83690; 85025; 96361; 96374; 96375; 99284; C9113; J2765; J7040

== ENCOUNTER 2017-08-02 14:11 | Emergency (ER) | payer MEDICARE, OTHER ==
[2017-08-02 14:21] VITALS: BMI 28.3
--- NOTE | 2017-08-02 14:45 | C.PDOC ---
History Of Present Illness <Marina Corado - Last Filed: 08/02/17 18:46> <Larissa Brush - Last Filed: 08/02/17 20:45> PERSIST ABD PAIN X 1 MO. MULT PRIOR ER VISIT AND ADMISSION FOR SAME. S/P CT 2016 AND 05/2017, SP ENDOSCOPY 06/2017 DR PABON. EPIG PAIN RADIATION TO PERIUMB AREA. OCC RELIEF W MEDS "BUT NO LONGER WORK". +DEC APPETITE, 10-15 LB WT LOSS IN 2 MO. NO FEVER, NV. +NORMAL BM. NO RELIEF W CARAFATE, REGLAN, UNK GI MEDS. CURRENTLY ON UNK PAIN MEDICINE "THAT HAS MOTRIN IN IT" RX BY DR PABON. EXAM MOD DIST NONTOXIC HEENT ANICTERIC MMM ABD +EPIG TEND SOFT NO R/G REMAINDER NEG MEDS REVIEWED.FLAGYL 500 MG 05/2017, ?COMPLIANCE W MEDS (Marina Corado) History Per: Patient History/Exam Limitations: no limitations Onset/Duration Of Symptoms: Days Current Symptoms Are (Timing): Still Present Severity: Moderate <Marina Corado - Last Filed: 08/02/17 18:46> <Larissa Brush - Last Filed: 08/02/17 20:45> Time Seen by Provider: 08/02/17 14:25 Chief Complaint (Nursing): Abdominal Pain Past Medical History Reviewed: Historical Data, Nursing Documentation, Vital Signs - Medical History PMH: Arthritis, Diabetes, Gastritis, Hiatal Hernia, HTN, Hypercholesterolemia Denies: Chronic Kidney Disease Surgical History: Coronary Stent (1998), Endoscopy Family History: States: No Known Family Hx - Social History Hx Alcohol Use: No Hx Substance Use: No - Immunization History Hx Tetanus Toxoid Vaccination: No Hx Influenza Vaccination: No Hx Pneumococcal Vaccination: No <Marina Corado - Last Filed: 08/02/17 18:46> Vital Signs: Last Vital Signs Temp 98.4 F 08/02/17 16:42 Pulse 76 08/02/17 16:42 Resp 16 08/02/17 16:42 BP 124/74 08/02/17 16:42 Pulse Ox 96 08/02/17 18:47 Review Of Systems Except As Marked, All Systems Reviewed And Found Negative. Constitutional: Positive for: Weight loss. Negative for: Fever, Chills Gastrointestinal: Positive for: Abdominal Pain. Negative for: Nausea, Vomiting <Marina Corado - Last Filed: 08/02/17 18:46> Physical Exam - Physical Exam Appears: Non-toxic, Other (moderate distress) Skin: Normal Color, Warm Head: Atraumatic, Normacephalic Eye(s): bilateral: Other (anicteric) Nose: Normal Oral Mucosa: Moist Gastrointestinal/Abdominal: Soft, Tenderness (epigastric tenderness), No Guarding, No Rebound Extremity: Normal ROM Neurological/Psych: Oriented x3, Normal Speech, Normal Motor, Normal Sensation <Marina Corado - Last Filed: 08/02/17 18:46> ED Course And Treatment - Laboratory Results Result Diagrams: 08/02/17 15:13 08/02/17 15:13 ECG: Interpreted By Me ECG Rhythm: Sinus Rhythm ECG Interpretation: Normal Rate From EC O2 Sat by Pulse Oximetry: 96 (RA) Pulse Ox Interpretation: Normal <Marina Corado - Last Filed: 08/02/17 18:46> - Laboratory Results Result Diagrams: 08/02/17 15:13 08/02/17 15:13 <Larissa Brush - Last Filed: 08/02/17 20:45> Progress - Data Reviewed Data Reviewed: Lab, Diagnostic imaging, EKG, Old records <Marina Corado - Last Filed: 08/02/17 18:46> Medical Decision Making <Marina Corado - Last Filed: 08/02/17 18:46> <Larissa Brush - Last Filed: 08/02/17 20:45> Medical Decision Making: Plan: --Labs --UA --CT- Angio Abd/ Pelv. --IV Fluids ([place]) Upon provider reevaluation patient is feeling better, is medically stable, and requires no further treatment in the ED at this time. Patient will be discharged home with Rx for bentyl, tramadol . Counseling was provided and all questions were answered regarding diagnosis and need for follow up with dr pabon. There is agreement to discharge plan. Return if symptoms persist or worsen. (Larissa Brush) Disposition - Disposition Disposition Time: 19:00 <Marina Corado - Last Filed: 08/02/17 18:46> Counseled Patient/Family Regarding: Studies Performed, Diagnosis, Need For Followup, Rx Given <Larissa Brush - Last Filed: 08/02/17 20:45> - Disposition Referrals: Lazaro Pabon [Staff Provider] - Disposition: HOME/ ROUTINE Condition: FAIR Prescriptions: Dicyclomine [Dicyclomine HCl] 10 mg PO QID #20 cap traMADol [Ultram] 50 mg PO TID PRN #15 tab PRN Reason: Pain, Severe (8-10) Instructions: Stomach Ache and Stomach Upset Forms: [employer] (Dominican) - Clinical Impression Clinical Impression: Chronic abdominal pain, Intractable pain - Scribe Statement The provider has reviewed the documentation as recorded by the Scribe <Marina Corado - Last Filed: 08/02/17 18:46> <Larissa Brush - Last Filed: 08/02/17 20:45> - Scribe Statement Oral Abebe (Marina Corado) Provider Attestation: All medical record entries made by the Scribe were at my direction and personally dictated by me. I have reviewed the chart and agree that the record accurately reflects my personal performance of the history, physical exam, medical decision making, and the department course for this patient. I have also personally directed, reviewed, and agree with the discharge instructions and disposition. (Marina Corado) Physician Patient Turnover Patient Signed Over To: Larissa Brush Handoff Comments: FU CT ANGIO, DISPO <Marina Corado - Last Filed: 08/02/17 18:46>
[2017-08-02] MEDS ORDERED: Sodium Chloride 0.9% 1,000 ML IV ONE (14:46)
[2017-08-02] MEDS ORDERED: Morphine 4 MG/ML VIAL ONE ×2 (15:05→20:43)
[2017-08-02 15:17] LABS: BASO # 0.1 K/uL (0.0-0.2); EOS # 0.1 K/uL (0.0-0.7); EOS % 1.2 % (0.0-4.0); HEMOGLOBIN 11.1 g/dL (11.0-16.0); LYMPH # 1.3 K/uL (1.0-4.3); LYMPH % 16.7 % (20.0-40.0); MEAN CELL VOLUME 77.3 fL (81.0-99.0); MEAN CORPUSCULAR HEMOGLOBIN 25.7 pg (27.0-31.0); MEAN CORPUSCULAR HGB CONC 33.2 g/dL (33.0-37.0); MONO # 0.5 K/uL (0.0-0.8); MONO % 6.7 % (0.0-10.0); NEUT % 74.4 % (50.0-75.0); NRBC % 0.1 % (0.0-2.0); RBC 4.32 Mil/uL (3.80-5.20); RED CELL DISTRIBUTION WIDTH 15.2 % (11.5-14.5)
[2017-08-02 15:19] LABS: VENOUS BLOOD GAS BASE EXCESS -4.6 mmol/L (0.0-2.0); VENOUS BLOOD GAS PCO2 63 mmHg (40-60); VENOUS BLOOD GAS PO2 35 mm/Hg (30-55)
[2017-08-02 15:25] LABS: PROTHROMBIN TIME 10.8 SECONDS (9.7-12.2)
[2017-08-02 15:38] LABS: ALB/GLOB RATIO 1.1 (1.0-2.1); ALBUMIN 3.9 g/dL (3.5-5.0); CALCIUM 9.5 mg/dl (8.6-10.4)
[2017-08-02] MEDS ORDERED: Barium Sulfate Susp 0.1% w/v, 0.1% w/w 450 mL Bottle PO ONE (16:12)
[2017-08-02 16:45] LABS: SQUAMOUS EPITHIAL 6 /hpf (0-5); URINE BACTERIA OCC (<OCC); URINE BILIRUBIN NEGATIVE (NEGATIVE); URINE BLOOD NEGATIVE (NEGATIVE); URINE CLARITY Clear (Clear); URINE COLOR Yellow (YELLOW); URINE GLUCOSE (UA) 3+ mg/dL (Normal); URINE LEUKOCYTE ESTERASE TRACE Leu/uL (Negative); URINE PROTEIN 3+ mg/dL (NEGATIVE); URINE UROBILINOGEN NORMAL mg/dL (0.2-1.0)
[2017-08-02] MEDS ORDERED: Iodixanol 320 MG/ML 100 ML BOTTLE IV ONE (17:07)
--- NOTE | 2017-08-02 20:19 | CT ---
EXAM: CT Abdomen and Pelvis With Intravenous Contrast EXAM DATE/TIME: Exam ordered 08/02/2017 2:56 PM CLINICAL HISTORY: 67 years old, female; Pain; Abdominal pain; Generalized; Additional info: Volumen study. Abd pain RO mesenteric ischemia TECHNIQUE: Axial computed tomography images of the abdomen and pelvis with intravenous contrast during the arterial phase of enhancement. All CT scans at this facility use one or more dose reduction techniques, viz.: automated exposure control; ma/kV adjustment per patient size (including targeted exams where dose is matched to indication; i.e. head); or iterative reconstruction technique. Coronal and sagittal reformatted images were created and reviewed. CONTRAST: 100 mL of VISI administered intravenously. COMPARISON: No relevant prior studies available. FINDINGS: VASCULATURE: Aorta: Arteriosclerotic changes noted of the abdominal aorta and its proximal branches. Moderate degenerative disc disease is noted at L5-S1. No aortic aneurysm. No dissection. Celiac trunk and mesenteric arteries: No acute findings. No occlusion or significant stenosis. Renal arteries: No acute findings. No occlusion or significant stenosis. Iliac arteries: No occlusion or significant stenosis. CHEST: Lungs: There is a calcified granuloma noted in the right lower lobe at the lung base. There is a 3 mm pulmonary nodule in the right lower lobe (series 5 image 14). There is a 2.5 mm nodule in left lower lobe (series 5 image 9). There is a 4 mm nodule in the left lower lobe (series 5 image 23). A calcified granuloma is noted in the left lower lobe. Pleural space: Unremarkable. No significant effusion. No pneumothorax. Heart: Coronary artery calcifications present. No significant pericardial effusion. Mediastinum: Fluid is noted within the distal esophagus. ABDOMEN: Liver: A coarse calcification is noted in the right lobe of the liver posteriorly. A tiny subcapsular calcification is noted also in the right lobe laterally Gallbladder and bile ducts: Unremarkable. No calcified stones. No ductal dilation. Pancreas: Unremarkable. No ductal dilation. No mass. Spleen: There are multiple splenic granulomas. Adrenals: Unremarkable. No mass. Kidneys and ureters: Vascular calcifications are seen in the right kidney. A less than 4 mm low density lesion is seen in the midportion of the left kidney too small to characterize fully. Stomach and bowel: The stomach is markedly distended with fluid.. No obstruction. No mucosal thickening. Appendix: Surgical clips are seen at the base of the cecum. The appendix is not seen.. no PELVIS: Bladder: The bladder is distended measuring 14.3 x 7.4 x 11.5 cm for a volume of approximately 620 cc. Reproductive: The uterus is absent. The ovaries are not seen as separate structures. CHEST, ABDOMEN and PELVIS: Intraperitoneal space: Unremarkable. No significant fluid collection. No free air. There is a 1.2 cm rounded heterogeneous appearing mass located directly inferior to the lower pole the right kidney with adjacent stranding in the pararenal fat. A partially calcified soft tissue mass is noted anterior to the left external iliac artery just beyond the bifurcation measuring 1.9 x 1 point 3 x 1.4 cm. Bones/joints: No acute fracture. No dislocation. Soft tissues: There is a 2 cm supraumbilical midline abdominal hernia containing fat. No signs suggest strangulation Lymph nodes: Scattered lymph nodes are noted in the peter hepatis/portacaval space. It measure less than a centimeter the largest measures 1.6 x 1.9 by 2 cm. IMPRESSION: 1. No acute findings. No evidence of mesenteric ischemia. 2. Multiple pulmonary nodules. There is evidence of previous granulomatous disease.. For low-risk patients, no follow-up is necessary. For high-risk patients (smoking history or other known risk factors) an optional chest CT at 12 months could be performed. 3. Small supraumbilical midline abdominal hernia containing fat. No evidence of strangulation. 4. Less than 4 mm low density lesion in the left kidney too small to characterize fully. No change 5. Partially calcified mass anterior to the left external iliac artery. Heterogeneous located within the pararenal fat mass inferior to the right kidney. Both findings are unchanged from previous and may represent calcified lymph nodes from previous granulomatous infection. 6. Fluid within the distal esophagus suggests gastroesophageal reflux disease. The stomach is moderately distended with fluid Images were attached to this report and are available at [email or web address]
[2017-08-02 20:52] VITALS: BP 136/81; PULSE 63; RESP 20; TEMP 97.9; O2SAT 98
--- NOTE | 2017-08-03 16:25 | CARD ---
APPROVED REPORT EKG Measurement Heart [id number] NV 158P21 [id number] <Conclusion> Normal sinus rhythm Normal ECG
== END 2017-08-02 20:59 | disposition home or self-care (01) ==
LOC: C.ER 14:11
DX: G89.29 Other chronic pain (principal); R10.9 Unspecified abdominal pain; I10 Essential (primary) hypertension; E11.9 Type 2 diabetes mellitus without complications; E78.00 Pure hypercholesterolemia, unspecified
CPT/HCPCS: 74175; 80053; 81001; 82803; 83690; 85025; 85610; 85730; 93005; 96361; 96374; 96375; 96376; 99285; J2270; J2405; J7040; Q9967

== ENCOUNTER 2017-11-10 08:10 | Emergency (ER) | payer MEDICARE, OTHER ==
[2017-11-10 08:10] VITALS: BMI 28.3
[2017-11-10 08:44] VITALS: RESP 18; TEMP 98.3
[2017-11-10] MEDS ORDERED: Alum-Mag Hydrox-Simethicone Susp (30 mL) PO STA (09:05)
--- NOTE | 2017-11-10 09:17 | C.PDOC ---
History Of Present Illness 67 y/o female with history of HTN, DM and High Cholesterol presents to ED with c /o abdominal pain since yesterday. Patient reports last bowel movement yesterday and denies dysuria, fever, vomiting, diarrhea or any other complaints at this time. Time Seen by Provider: 11/10/17 08:58 Chief Complaint (Nursing): Abdominal Pain History Per: Patient History/Exam Limitations: no limitations Onset/Duration Of Symptoms: Days Current Symptoms Are (Timing): Still Present Location Of Pain/Discomfort: Epigastric Past Medical History Reviewed: Historical Data, Nursing Documentation, Vital Signs Vital Signs: Last Vital Signs Temp 98.3 F 11/10/17 08:19 Pulse 94 H 11/10/17 08:19 Resp 18 11/10/17 08:19 BP 144/80 11/10/17 08:19 Pulse Ox 96 11/10/17 09:17 - Medical History PMH: Arthritis, Diabetes, Gastritis, Hiatal Hernia, HTN, Hypercholesterolemia Surgical History: Appendectomy, Coronary Stent (1998), Endoscopy Family History: States: No Known Family Hx - Social History Hx Alcohol Use: No Hx Substance Use: No - Immunization History Hx Tetanus Toxoid Vaccination: No Hx Influenza Vaccination: No Hx Pneumococcal Vaccination: No Review Of Systems Except As Marked, All Systems Reviewed And Found Negative. Gastrointestinal: Positive for: Abdominal Pain. Negative for: Nausea, Vomiting Genitourinary: Negative for: Dysuria, Frequency Physical Exam - Physical Exam Additional Physical Exam Comments: Constitutional: No acute distress. Head: Normocephalic. Atraumatic. Eyes: PERRL. ENT: Moist mucous membranes. Neck: Supple. Cardiovascular: Regular rate. Radial pulse 2+ bilaterally. Chest: No tenderness. Respiratory: Clear to auscultation bilaterally. GI: Epigastric and LUQ tenderness. No rebound. No guarding. Back: No CVA tenderness. Musculoskeletal: No tenderness or swelling of extremities. Skin: No rash. Neurologic: Alert, no focal deficit. ED Course And Treatment - Laboratory Results Result Diagrams: 11/10/17 09:24 11/10/17 09:24 O2 Sat by Pulse Oximetry: 96 (RA) Pulse Ox Interpretation: Normal Medical Decision Making Medical Decision Making: Patient feels better after treatment and wishes to eat. Copy of CT given to patient for follow up. Disposition - Disposition Disposition: HOME/ ROUTINE Disposition Time: 13:03 Condition: STABLE Additional Instructions: PROCEDURE: CT Abdomen and Pelvis with contrast HISTORY: abdominal pain COMPARISON: 08/02/2017 TECHNIQUE: Contrast dose: 100 mL Visipaque 320 Radiation dose: Total exam DLP = 658.98 mGy-cm. This CT exam was performed using one or more of the following dose reduction techniques: Automated exposure control, adjustment of the mA and/or kV according to patient size, and/or use of iterative reconstruction technique. FINDINGS: LOWER THORAX: Calcified granuloma right lower lobe. Noncalcified 4 mm nodule right lower lobe. . 4 mm noncalcified nodule left lower lobe. No infiltrate/ effusion. LIVER: UnremarkableMacro lobulated contour common nonspecific. Possible hepatic cirrhosis. Several nodular calcifications consistent with old calcified granulomas. No mass. No biliary ductal dilatation. . GALLBLADDER AND BILE DUCTS: Unremarkable. PANCREAS: Unremarkable. No gross lesion or ductal dilatation. SPLEEN: Multiple punctate calcifications consistent with old calcified granulomas. ADRENALS: Unremarkable. No mass. KIDNEYS AND URETERS: Tiny rounded low-density lesion lower pole left kidney, less than 1 cm, too small to characterize. Likely cortical cyst. No calculus. No hydronephrosis. There is a rounded partially calcified circumscribed mass, 1.4 cm diameter, unchanged from prior CT. There is mild adjacent inflammatory change. Finding is of uncertain significance. This could represent an old calcified lymph node florid detachment of old exophytic renal cortical cyst. The inflammatory change is of uncertain significance. There is no eriberto fluid collection. The. VASCULATURE: Unremarkable. No aortic aneurysm. BOWEL: No bowel obstruction. Postoperative sutures seen at cecal apex, possibly from prior appendectomy. Small hiatal hernia. Probable small diverticulum arising from very small herniated portion of stomach. APPENDIX: Probable prior appendectomy. PERITONEUM: Coarsely calcified soft tissue mass anterior to left psoas muscle at the level of the common iliac artery, possibly calcified lymph node or calcified old atrophic left ovary. Very small left paraumbilical hernia containing only mesenteric fat. LYMPH NODES: There are shotty retroperitoneal and peter hepatis lymph nodes, up to 1 cm. No pelvic lymphadenopathy. Shotty right epicardial lymphadenopathy, less than 1 cm diameter. BLADDER: Unremarkable. REPRODUCTIVE: Status post hysterectomy BONES: No acute fracture. OTHER FINDINGS: None. IMPRESSION: No acute abnormality. Question of hepatic cirrhosis. Correlate with laboratory testing. Shotty peter hepatis and retroperitoneal lymph nodes, nonspecific. Nonspecific 1.4 cm partially calcified rounded circumscribed mass inferior to right kidney with adjacent mild inflammatory change, unchanged from 08/02/2017. Uncertain significance. Calcified old hepatic, splenic and pulmonary granulomas. Prescriptions: Famotidine/Ca Carb/Mag Hydrox [Pepcid Complete Tablet Chew] 1 each PO BID #28 tab.chew Instructions: Acute Abdomen (Belly Pain), Adult (DC) Forms: [employer] (Burkinan) - Clinical Impression Clinical Impression: Abdominal pain - Scribe Statement The provider has reviewed the documentation as recorded by the Bostonibsarita Trejo All medical record entries made by the Bostonibsarita were at my direction and personally dictated by me. I have reviewed the chart and agree that the record accurately reflects my personal performance of the history, physical exam, medical decision making, and the department course for this patient. I have also personally directed, reviewed, and agree with the discharge instructions and disposition.
[2017-11-10] MEDS ORDERED: Alum-Mag Hydrox-Simethicone Susp (30 mL) ONE (09:20)
[2017-11-10 09:28] LABS: BASO # 0.1 K/uL (0.0-0.2); BASO % 1.8 % (0.0-2.0); EOS # 0.1 K/uL (0.0-0.7); EOS % 1.9 % (0.0-4.0); LYMPH # 1.1 K/uL (1.0-4.3); MEAN CELL VOLUME 74.9 fL (81.0-99.0); MEAN CORPUSCULAR HEMOGLOBIN 24.7 pg (27.0-31.0); MEAN PLATELET VOLUME 8.5 fL (7.2-11.7); MONO # 0.3 K/uL (0.0-0.8); MONO % 3.7 % (0.0-10.0); NEUT # 5.7 K/uL (1.8-7.0); NEUT % 77.6 % (50.0-75.0); RBC 4.46 Mil/uL (3.80-5.20); RED CELL DISTRIBUTION WIDTH 15.4 % (11.5-14.5); WHITE BLOOD COUNT 7.3 K/uL (4.8-10.8)
[2017-11-10 09:41] LABS: ALB/GLOB RATIO 1.2 (1.0-2.1); ALBUMIN 4.4 g/dL (3.5-5.0); ALT/SGPT 19 U/L (9-52); AST/SGOT 27 U/L (14-36); BLOOD UREA NITROGEN 17 mg/dL (7-17); CALCIUM 9.8 mg/dl (8.6-10.4); GFR AFRICAN-AMERICAN > 60; GFR NON-AFRICAN AMERICAN 55; LIPASE 331 U/L (23-300)
[2017-11-10] MEDS ORDERED: Iodixanol 320 MG/ML 100 ML BOTTLE IV ONE (11:15)
--- NOTE | 2017-11-10 12:34 | CT ---
PROCEDURE: CT Abdomen and Pelvis with contrast HISTORY: abdominal pain COMPARISON: 08/02/2017 TECHNIQUE: Contrast dose: 100 mL Visipaque 320 Radiation dose: Total exam DLP = 658.98 mGy-cm. This CT exam was performed using one or more of the following dose reduction techniques: Automated exposure control, adjustment of the mA and/or kV according to patient size, and/or use of iterative reconstruction technique. FINDINGS: LOWER THORAX: Calcified granuloma right lower lobe. Noncalcified 4 mm nodule right lower lobe. . 4 mm noncalcified nodule left lower lobe. No infiltrate/ effusion. LIVER: UnremarkableMacro lobulated contour common nonspecific. Possible hepatic cirrhosis. Several nodular calcifications consistent with old calcified granulomas. No mass. No biliary ductal dilatation. . GALLBLADDER AND BILE DUCTS: Unremarkable. PANCREAS: Unremarkable. No gross lesion or ductal dilatation. SPLEEN: Multiple punctate calcifications consistent with old calcified granulomas. ADRENALS: Unremarkable. No mass. KIDNEYS AND URETERS: Tiny rounded low-density lesion lower pole left kidney, less than 1 cm, too small to characterize. Likely cortical cyst. No calculus. No hydronephrosis. There is a rounded partially calcified circumscribed mass, 1.4 cm diameter, unchanged from prior CT. There is mild adjacent inflammatory change. Finding is of uncertain significance. This could represent an old calcified lymph node florid detachment of old exophytic renal cortical cyst. The inflammatory change is of uncertain significance. There is no eriberto fluid collection. The. VASCULATURE: Unremarkable. No aortic aneurysm. BOWEL: No bowel obstruction. Postoperative sutures seen at cecal apex, possibly from prior appendectomy. Small hiatal hernia. Probable small diverticulum arising from very small herniated portion of stomach. APPENDIX: Probable prior appendectomy. PERITONEUM: Coarsely calcified soft tissue mass anterior to left psoas muscle at the level of the common iliac artery, possibly calcified lymph node or calcified old atrophic left ovary. Very small left paraumbilical hernia containing only mesenteric fat. LYMPH NODES: There are shotty retroperitoneal and peter hepatis lymph nodes, up to 1 cm. No pelvic lymphadenopathy. Shotty right epicardial lymphadenopathy, less than 1 cm diameter. BLADDER: Unremarkable. REPRODUCTIVE: Status post hysterectomy BONES: No acute fracture. OTHER FINDINGS: None. IMPRESSION: No acute abnormality. Question of hepatic cirrhosis. Correlate with laboratory testing. Shotty peter hepatis and retroperitoneal lymph nodes, nonspecific. Nonspecific 1.4 cm partially calcified rounded circumscribed mass inferior to right kidney with adjacent mild inflammatory change, unchanged from 08/02/2017. Uncertain significance. Calcified old hepatic, splenic and pulmonary granulomas.
[2017-11-10 13:12] VITALS: BP 149/80; PULSE 82; O2SAT 98
--- NOTE | 2017-11-14 12:11 | CARD ---
APPROVED REPORT EKG Measurement Heart [id number] DC 160P27 [id number] <Conclusion> Normal sinus rhythm Cannot rule out Anterior infarct, age undetermined Abnormal ECG
== END 2017-11-10 13:29 | disposition home or self-care (01) ==
LOC: C.ER 08:10
DX: R10.13 Epigastric pain (principal)
CPT/HCPCS: 74177; 80053; 82948; 83690; 85025; 93005; 96374; 96375; 99285; J2405; Q9967

== ENCOUNTER 2017-12-05 11:26 | Emergency (ER) | payer MEDICARE, OTHER ==
[2017-12-05 11:27] VITALS: BMI 28.3
[2017-12-05 12:26] VITALS: RESP 18
--- NOTE | 2017-12-05 12:42 | C.PDOC ---
History Of Present Illness 67 y/o female with history of IDDM, HTN and Gastritis presents to ED for evaluation of gradually worsen epigastric abdominal pain for 1 week radiating to back worse with food intake. Patient reports nausea, decrease in appetite. Otherwise, pt denies fever, chills, headache, dizziness, neck pain, CP, SOB, dyspnea, diaphoresis, palpitation, vomiting, hematemesis, diarrhea, dysuria, or any other complaints at this time. Pt admits, was seen by PMD WHEELMAN who sent pt to ED for further evaluation and tx. At the time of evaluation, pt appears comfortable, not in any apprent distress. Time Seen by Provider: 12/05/17 12:31 Chief Complaint (Nursing): Abdominal Pain History Per: Patient History/Exam Limitations: no limitations Onset/Duration Of Symptoms: Days Current Symptoms Are (Timing): Still Present Location Of Pain/Discomfort: Epigastric Past Medical History Reviewed: Historical Data, Nursing Documentation, Vital Signs Vital Signs: Last Vital Signs Temp 98 F 12/05/17 14:33 Pulse 76 12/05/17 14:33 Resp 18 12/05/17 14:33 BP 120/73 12/05/17 14:33 Pulse Ox 97 12/05/17 15:53 - Medical History PMH: Arthritis, Diabetes, Gastritis, Hiatal Hernia, HTN, Hypercholesterolemia Surgical History: Appendectomy, Coronary Stent (1998), Endoscopy Family History: States: No Known Family Hx - Social History Hx Alcohol Use: No Hx Substance Use: No - Immunization History Hx Tetanus Toxoid Vaccination: No Hx Influenza Vaccination: No Hx Pneumococcal Vaccination: No Review Of Systems Constitutional: Negative for: Fever, Chills Gastrointestinal: Positive for: Nausea, Abdominal Pain. Negative for: Vomiting , Diarrhea Genitourinary: Negative for: Dysuria Musculoskeletal: Negative for: Back Pain Skin: Negative for: Rash Physical Exam - Physical Exam Appears: Non-toxic, No Acute Distress Skin: Warm, Dry, No Rash Head: Normacephalic, No Abrasion Eye(s): bilateral: PERRL Nose: No Flaring, No Discharge Oral Mucosa: Moist, No Drooling Tongue: Normal Appearing Lips: Normal Appearing Throat: No Erythema, No Drooling Neck: Normal ROM, Trachea Midline, Supple Cardiovascular: Rhythm Regular, No Murmur, No JVD Respiratory: No Decreased Breath Sounds, No Accessory Muscle Use, No Rales, No Rhonchi, No Stridor, No Wheezing Gastrointestinal/Abdominal: Soft, Tenderness (Epigastric and RUQ, mild), No Distention, No Guarding, No Rebound Back: No CVA Tenderness Extremity: Normal ROM, No Pedal Edema, Capillary Refill (<2 seconds) Neurological/Psych: Oriented x3, Normal Speech, Normal Cognition ED Course And Treatment - Laboratory Results Result Diagrams: 12/05/17 13:06 12/05/17 13:06 ECG: Interpreted By Me, Viewed By Me ECG Rhythm: Sinus Rhythm ECG Interpretation: Normal Interpretation Of ECG: SR@72/min, NAD, no acute T wave or ST-T changes. O2 Sat by Pulse Oximetry: 97 (RA) Pulse Ox Interpretation: Normal - CT Scan/US gallbladder US Other Rad Studies (CT/US): Radiology Report Reviewed CT/US Interpretation: Securities Counselor : Jc Cordero MD. Approver2 : Report Date : 12/05/2017 14:25:01. My Comment : . Date of service: 12/05/2017. HISTORY: RUQ pain. COMPARISON: None. TECHNIQUE: Sonographic evaluation of the right upper quadrant of the abdomen. FINDINGS: LIVER: Measures 11.9 cm in length. Normal echogenicity of the liver parenchyma. No mass. No intrahepatic bile duct dilatation. GALLBLADDER: Unremarkable. No gallstones. COMMON BILE DUCT: Measures 3 mm. No stones. No dilatation. PANCREAS: Unremarkable as visualized. No mass. No ductal dilatation. RIGHT KIDNEY: Measures 10.6 x 4.9 x 4.1 cm in length. Normal echogenicity. No calculus, mass, or hydronephrosis. AORTA: No aneurysmal dilatation. IVC: Unremarkable. OTHER FINDINGS: None . IMPRESSION: Unremarkable right upper quadrant ultrasound CT abd/pelvis Other Rad Studies (CT/US): Radiology Report Reviewed CT/US Interpretation: Creator : Nayeli Cole. Dictator : Jc Cordero MD. Paper Sheeter : Securities Counselor : Jc Cordero MD. Approver2 : Report Date : 12/05/2017 15:09:43. My Comment : . Date of service: 12/05/2017. PROCEDURE: CT Abdomen and Pelvis with contrast. HISTORY: epigastroc, LLQ pain. COMPARISON: CT scan of the abdomen pelvis dated 11/10/2017. TECHNIQUE: Contrast dose: 100 mL Visipaque 320. Radiation dose: Total exam DLP = 600.2 mGy-cm. This CT exam was performed using one or more of the following dose reduction techniques: Automated exposure control, adjustment of the mA and/or kV according to patient size, and/or use of iterative reconstruction technique. FINDINGS: LOWER THORAX: Right lower lobe calcified granuloma. 4 mm left lower and right lower lobe nodules. Focal consolidation or pleural effusion. Heart size normal. Coronary arterial and valvular calcification. LIVER: Punctate hepatic granulomas. Nodular hepatic contour. No gross lesion or ductal dilatation. GALLBLADDER AND BILE DUCTS: Stable gallbladder distension. PANCREAS: Unremarkable. No gross lesion or ductal dilatation. SPLEEN: Unremarkable. ADRENALS: Unremarkable. No mass. KIDNEYS AND URETERS: Unremarkable. No hydronephrosis. No solid mass. VASCULATURE: Unremarkable. No aortic aneurysm. BOWEL: Unremarkable. No obstruction. No gross mural thickening. APPENDIX: Prior appendectomy. PERITONEUM: Stable appearance of 1.4 cm round heterogeneous structure inferior to the right kidney with surrounding inflammatory change. No free fluid. No free air. LYMPH NODES: Stable appearance of small aortocaval, portacaval and gastrohepatic region lymph nodes. BLADDER: Unremarkable. REPRODUCTIVE: Unremarkable. BONES: No acute fracture. OTHER FINDINGS: None. IMPRESSION: No acute abdominal pelvic pathology. Stable appearance of 1.4 cm round heterogeneous structure inferior to the right kidney with surrounding inflammatory change. Stable appearance of small, prominent scattered lymph nodes. Additional stable findings as above. Progress Note: Pt was OBS in ED for 4 hours and reports mod improvement in pain. On re-eval, pt is afebrile, hemodynamicaly stable. Non-toxic. Pt was given PO challenge, tolerate well. ENT: no acute findings. neck: Supple, (-) JVD, (-) carotid bruits B/L. Lungs: CTA B/L, BS equal B/L. CVS: (+)S1S2, reg. Abd: benign, (-) guarding, (-) rebound. back: (-) CVA tenderness. Blood work review, chronic stable anemia (compare to previous visits), high lipase. UA results review and c/w UTI. EKG, Troponin- no acute changes. CT abd/pelvis review no acute pathology , no evidence of acute pancreatitis. Gallbladder US review - no acute findings. UA results review and c/w UTI. case discussed, results review with and discharge with outpt f/u recommend. Pt has clinical findings c/w UTI, abd. pain, high lipase. results review and discussed with pt, pt advised and ref. to f?u with PMD in 1-2 days for re-eavl. return to Ed if any worsening or new changes. Disposition Counseled Patient/Family Regarding: Studies Performed, Diagnosis, Need For Followup, Rx Given - Disposition Referrals: Nickie Lester MD [Staff Provider] - Disposition: HOME/ ROUTINE Disposition Time: 15:53 Condition: STABLE Additional Instructions: Encourage fluids Diet restriction, avoid fatty, spicy food, milk for 2-3 weeks take medication as prescribed Follow up with PMD in 1-2 days for re-evaluation. Return to ED if any worsening or new changes. Prescriptions: Ciprofloxacin [Cipro] 1 tab PO BID #14 tab Pantoprazole Sodium [Protonix] 40 mg PO DAILY #20 tablet. traMADol [Ultram] 50 mg PO TID #7 tab Instructions: Urinary Tract Infections in Adults, Pancreatitis (DC), Lipase Blood Test Forms: [employer] (Anguillan) Print Language: URDU - Clinical Impression Clinical Impression: UTI (urinary tract infection), Abdominal pain, Serum lipids high - PA / CONCRETE BUCKET LOADER / Resident Statement MD/DO has reviewed & agrees with the documentation as recorded. - Scribe Statement The provider has reviewed the documentation as recorded by the Jennifer Trejo All medical record entries made by the Scribe were at my direction and personally dictated by me. I have reviewed the chart and agree that the record accurately reflects my personal performance of the history, physical exam, medical decision making, and the department course for this patient. I have also personally directed, reviewed, and agree with the discharge instructions and disposition.
[2017-12-05] MEDS ORDERED: Sodium Chloride 0.9% 1,000 ML IV ONE (12:48)
[2017-12-05] MEDS ORDERED: Sodium Chloride 0.9% 1,000 ML ONE (13:04)
[2017-12-05 13:20] LABS: BASO # 0.1 K/uL (0.0-0.2); BASO % 1.1 % (0.0-2.0); EOS # 0.2 K/uL (0.0-0.7); EOS % 2.2 % (0.0-4.0); HEMOGLOBIN 10.5 g/dL (11.0-16.0); LYMPH # 1.5 K/uL (1.0-4.3); LYMPH % 19.9 % (20.0-40.0); MEAN CELL VOLUME 74.8 fL (81.0-99.0); MEAN CORPUSCULAR HEMOGLOBIN 25.2 pg (27.0-31.0); MEAN CORPUSCULAR HGB CONC 33.6 g/dL (33.0-37.0); MONO # 0.5 K/uL (0.0-0.8); MONO % 6.2 % (0.0-10.0); NEUT # 5.3 K/uL (1.8-7.0); NEUT % 70.6 % (50.0-75.0); RBC 4.19 Mil/uL (3.80-5.20); WHITE BLOOD COUNT 7.6 K/uL (4.8-10.8)
[2017-12-05 13:30] LABS: PROTHROMBIN TIME 11.2 SECONDS (9.7-12.2)
[2017-12-05 13:46] LABS: SQUAMOUS EPITHIAL 22 /hpf (0-5); URINE BACTERIA RARE (<OCC); URINE BILIRUBIN NEGATIVE (NEGATIVE); URINE BLOOD NEGATIVE (NEGATIVE); URINE CLARITY Hazy (Clear); URINE COLOR Yellow (YELLOW); URINE GLUCOSE (UA) 3+ mg/dL (Normal); URINE LEUKOCYTE ESTERASE 1+ Leu/uL (Negative); URINE PROTEIN 3+ mg/dL (NEGATIVE); URINE UROBILINOGEN NORMAL mg/dL (0.2-1.0)
[2017-12-05 13:56] LABS: ALB/GLOB RATIO 1.2 (1.0-2.1); ALBUMIN 4.2 g/dL (3.5-5.0); ALT/SGPT 25 U/L (9-52); AST/SGOT 30 U/L (14-36); BLOOD UREA NITROGEN 21 mg/dL (7-17); CALCIUM 9.8 mg/dl (8.6-10.4); GFR AFRICAN-AMERICAN 60; GFR NON-AFRICAN AMERICAN 49; LIPASE 519 U/L (23-300)
--- NOTE | 2017-12-05 14:26 | US ---
Date of service: 12/05/2017 HISTORY: RUQ pain COMPARISON: None. TECHNIQUE: Sonographic evaluation of the right upper quadrant of the abdomen. FINDINGS: LIVER: Measures 11.9 cm in length. Normal echogenicity of the liver parenchyma. No mass. No intrahepatic bile duct dilatation. GALLBLADDER: Unremarkable. No gallstones. COMMON BILE DUCT: Measures 3 mm. No stones. No dilatation. PANCREAS: Unremarkable as visualized. No mass. No ductal dilatation. RIGHT KIDNEY: Measures 10.6 x 4.9 x 4.1 cm in length. Normal echogenicity. No calculus, mass, or hydronephrosis. AORTA: No aneurysmal dilatation. IVC: Unremarkable. OTHER FINDINGS: None . IMPRESSION: Unremarkable right upper quadrant ultrasound
[2017-12-05 14:33] VITALS: BP 120/73; PULSE 76; TEMP 98
[2017-12-05 14:35] VITALS: O2SAT 97
--- NOTE | 2017-12-05 15:37 | CT ---
Date of service: 12/05/2017 PROCEDURE: CT Abdomen and Pelvis with contrast HISTORY: epigastroc, LLQ pain COMPARISON: CT scan of the abdomen pelvis dated 11/10/2017. TECHNIQUE: Contrast dose: 100 mL Visipaque 320 Radiation dose: Total exam DLP = 600.2 mGy-cm. This CT exam was performed using one or more of the following dose reduction techniques: Automated exposure control, adjustment of the mA and/or kV according to patient size, and/or use of iterative reconstruction technique. FINDINGS: LOWER THORAX: Right lower lobe calcified granuloma. 4 mm left lower and right lower lobe nodules. Focal consolidation or pleural effusion. Heart size normal. Coronary arterial and valvular calcification. LIVER: Punctate hepatic granulomas. Nodular hepatic contour. No gross lesion or ductal dilatation. GALLBLADDER AND BILE DUCTS: Stable gallbladder distension. PANCREAS: Unremarkable. No gross lesion or ductal dilatation. SPLEEN: Unremarkable. ADRENALS: Unremarkable. No mass. KIDNEYS AND URETERS: Unremarkable. No hydronephrosis. No solid mass. VASCULATURE: Unremarkable. No aortic aneurysm. BOWEL: Unremarkable. No obstruction. No gross mural thickening. APPENDIX: Prior appendectomy. PERITONEUM: Stable appearance of 1.4 cm round heterogeneous structure inferior to the right kidney with surrounding inflammatory change. No free fluid. No free air. LYMPH NODES: Stable appearance of small aortocaval, portacaval and gastrohepatic region lymph nodes. BLADDER: Unremarkable. REPRODUCTIVE: Unremarkable. BONES: No acute fracture. OTHER FINDINGS: None. IMPRESSION: No acute abdominal pelvic pathology. Stable appearance of 1.4 cm round heterogeneous structure inferior to the right kidney with surrounding inflammatory change. Stable appearance of small, prominent scattered lymph nodes. Additional stable findings as above.
--- NOTE | 2017-12-06 17:08 | CARD ---
APPROVED REPORT Date of service: 12/05/2017 EKG Measurement Heart [id number] <Conclusion> Normal sinus rhythm Possible Anterior infarct, age undetermined Abnormal ECG
== END 2017-12-05 16:57 | disposition home or self-care (01) ==
LOC: C.ER 11:26
DX: N39.0 Urinary tract infection, site not specified (principal); R10.13 Epigastric pain; E78.5 Hyperlipidemia, unspecified; E11.9 Type 2 diabetes mellitus without complications; I10 Essential (primary) hypertension; E78.00 Pure hypercholesterolemia, unspecified; Z79.4 Long term (current) use of insulin
CPT/HCPCS: 74177; 76705; 80053; 81001; 83690; 84484; 85025; 85610; 85730; 87086; 93005; 96361; 96372; 96374; 96375; 99284; J1885; J2405; J7030

== ENCOUNTER 2018-10-17 09:30 | Emergency (ER) | payer MEDICARE, OTHER ==
[2018-10-17 09:31] VITALS: BMI 28.3
[2018-10-17 09:41] VITALS: RESP 18
[2018-10-17 10:18] LABS: BASO # 0.1 K/uL (0.0-0.2); BASO % 1.5 % (0.0-2.0); EOS # 0.3 K/uL (0.0-0.7); EOS % 3.4 % (0.0-4.0); HEMOGLOBIN 10.4 g/dL (11.0-16.0); LYMPH % 12.4 % (20.0-40.0); MEAN CORPUSCULAR HEMOGLOBIN 26.5 pg (27.0-31.0); MEAN CORPUSCULAR HGB CONC 34.3 g/dL (33.0-37.0); MEAN PLATELET VOLUME 8.6 fL (7.2-11.7); MONO # 0.3 K/uL (0.0-0.8); MONO % 4.4 % (0.0-10.0); NEUT # 6.2 K/uL (1.8-7.0); NEUT % 78.3 % (50.0-75.0); RBC 3.94 Mil/uL (3.80-5.20); RED CELL DISTRIBUTION WIDTH 16.2 % (11.5-14.5); WHITE BLOOD COUNT 7.9 K/uL (4.8-10.8)
[2018-10-17 10:19] LABS: MEAN CELL VOLUME 77.2 fL (81.0-99.0)
[2018-10-17 10:31] LABS: ALB/GLOB RATIO 1.1 (1.0-2.1); ALBUMIN 4.1 g/dL (3.5-5.0); ALT/SGPT 17 U/L (9-52); AST/SGOT 26 U/L (14-36); BLOOD UREA NITROGEN 29 mg/dL (7-17); CALCIUM 9.8 mg/dl (8.6-10.4); GFR NON-AFRICAN AMERICAN 41
[2018-10-17 12:36] VITALS: O2SAT 97
--- NOTE | 2018-10-17 13:06 | C.PDOC ---
History Of Present Illness 68 y/o female,w/PMhx of HTN, presents to the ER complaining of dizziness. Patient describes the dizziness as the "room spinning." Patient reports that she has headache and "head is spinning." She also notes that she has some nausea and she vomited x1. She states that has history of similar symptoms approximately 15 years ago and she took some medications at the time with relief. Denies having fever,chills, CP,SOB, nausea, and vomiting. Time Seen by Provider: 10/17/18 10:22 Chief Complaint (Nursing): Dizziness/Lightheaded History Per: Patient History/Exam Limitations: no limitations Current Symptoms Are (Timing): Still Present Severity: Moderate Past Medical History Reviewed: Historical Data, Nursing Documentation, Vital Signs Vital Signs: Last Vital Signs Temp 98.5 F 10/17/18 12:35 Pulse 74 10/17/18 12:35 Resp 18 10/17/18 12:35 BP 130/67 10/17/18 12:35 Pulse Ox 97 10/17/18 12:35 Primary Care Provider: Nickie Lester - Medical History PMH: Arthritis, Diabetes, Gastritis, Hiatal Hernia, HTN, Hypercholesterolemia Surgical History: Appendectomy, Coronary Stent (1998), Endoscopy Family History: States: No Known Family Hx - Social History Hx Alcohol Use: No Hx Substance Use: No - Immunization History Hx Tetanus Toxoid Vaccination: No Hx Influenza Vaccination: No Hx Pneumococcal Vaccination: No Review Of Systems Except As Marked, All Systems Reviewed And Found Negative. Constitutional: Negative for: Fever, Chills Cardiovascular: Negative for: Chest Pain Respiratory: Negative for: Shortness of Breath Gastrointestinal: Negative for: Nausea, Vomiting Neurological: Positive for: Headache, Dizziness Physical Exam - Physical Exam Appears: Non-toxic, No Acute Distress Skin: Warm, Dry, Pale (very pale) Head: Atraumatic, Normacephalic Eye(s): bilateral: PERRL, EOMI, Conjunctiva Pale Nose: Normal Oral Mucosa: Moist Neck: Supple Chest: Symmetrical Cardiovascular: Rhythm Regular Respiratory: Normal Breath Sounds, No Rales, No Rhonchi, No Wheezing Gastrointestinal/Abdominal: Soft, No Tenderness, No Guarding, No Rebound, Other (obese) Neurological/Psych: Oriented x3, Normal Speech ED Course And Treatment - Laboratory Results Result Diagrams: 10/17/18 10:06 10/17/18 10:06 Lab Results: Troponin I < 0.0120 ng/mL (0.00-0.120) 10/17/18 10:06 Total Bilirubin 0.3 mg/dL (0.2-1.3) 10/17/18 10:06 AST 26 U/L (14-36) 10/17/18 10:06 ALT 17 U/L (9-52) 10/17/18 10:06 Alkaline Phosphatase 112 U/L (38-126) 10/17/18 10:06 Total Protein 7.8 g/dL (6.3-8.3) 10/17/18 10:06 Albumin 4.1 g/dL (3.5-5.0) 10/17/18 10:06 Globulin 3.6 gm/dL (2.2-3.9) 10/17/18 10:06 Albumin/Globulin Ratio 1.1 (1.0-2.1) 10/17/18 10:06 O2 Sat by Pulse Oximetry: 97 (RA) Pulse Ox Interpretation: Normal Medical Decision Making Medical Decision Making: Plan: --Labs --IV Fluids Updates: On re-evaluation, patient feels better. Patient does not appear to be as pale on initial examination. Patient has been discharged and instructed to follow up with PMD. Patient feeling much better on re-eval Disposition Counseled Patient/Family Regarding: Studies Performed, Diagnosis, Need For Followup, Rx Given - Disposition Referrals: Nickie Lester MD [Staff Provider] - Disposition: HOME/ ROUTINE Disposition Time: 13:04 Condition: STABLE Prescriptions: Meclizine [Meclizine*] 25 mg PO Q6 #30 tab Forms: [facility] (Armenian), General Discharge Instructions - POA Present On Arrival: None - Clinical Impression Clinical Impression: Vertigo - Scribe Statement The provider has reviewed the documentation as recorded by the Jennifer Abebe Provider Attestation: All medical record entries made by the [place]ita were at my direction and personally dictated by me. I have reviewed the chart and agree that the record accurately reflects my personal performance of the history, physical exam, medical decision making, and the department course for this patient. I have also personally directed, reviewed, and agree with the discharge instructions and disposition.
[2018-10-17 13:18] VITALS: BP 148/77; PULSE 73; TEMP 97.9
--- NOTE | 2018-10-20 12:35 | CARD ---
APPROVED REPORT Date of service: 10/17/2018 EKG Measurement Heart [id number] <Conclusion> Normal sinus rhythm Poor R wave progression Abnormal ECG
== END 2018-10-17 13:18 | disposition home or self-care (01) ==
LOC: C.ER 09:30
DX: R42 Dizziness and giddiness (principal)